=== PATIENT | female | born 1940 | race Caucasian/White ===

== ENCOUNTER 2016-09-22 09:00 | Emergency (ER) | payer MEDICARE, OTHER ==
[2016-09-22 09:15] VITALS: O2SAT 99
[2016-09-22] MEDS ORDERED: TORAdol 30 mg Injection IM ONE (09:19)
[2016-09-22] MEDS ORDERED: TORAdol 30 mg Injection ONE (09:23)
--- NOTE | 2016-09-22 09:26 | ERPHSYRPT ---
- History of Present Illness Time Seen by Provider: 09/22/16 09:11 Source: patient Exam Limitations: no limitations Patient Subjective Stated Complaint: TWISTED RIGHT FOOT AND ANKLE LAST NIGHT WHEN GETTING UP OFF COUCH. Triage Nursing Assessment: TO ROOM PER W/C. SKIN W/D, COLOR NORMAL, RESP EASY. 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 FOOT NORMAL COLOR AND WARM, GOOD PEDAL PULSE. ICE PACK APPLIED. Physician History: This is a 76-year-old white female she arrives with complaint of pain in her right dorsal foot since last night around 10:00. According to patient she went to get off the couch last night at 10:00. And her foot dorsiflexed. She had pain in the dorsal foot she did state she had some paresthesias of the foot. She states she has been having pain all night long she took some hydrocodone which she had left over from dentist. She denies other complaints. Past medical history includes hypothyroidism, high blood pressure, cholesterol, neuropathy. Past surgical history includes right total knee, tonsillectomy adenoidectomy, cataract surgery, right foot surgery. Social history patient denies tobacco alcohol or illicit drug use. Method of Injury: twisted (twisted right foot last night) Occurred: yesterday (occurred last night) Lower Extremities Pain: foot: right Modifying Factors: Improves With: nothing Associated Symptoms: unable to bear weight, other (pain dorsal right foot) Allergies/Adverse Reactions: prochlorperazine [From Compazine] Adverse Reaction (Verified 12/14/15 06:20) Home Medications: Cholecalciferol (Vitamin D3) [Vitamin D] 1,000 unit PO DAILY 12/13/15 [ History] Gabapentin 300 mg PO TID 12/13/15 [History] Glimepiride 2 mg [Amaryl 2 MG] 2 mg PO BID 12/13/15 [History] Hydrochlorothiazide 25 mg [hydroDIURIL 25 MG] 25 mg PO QAM 12/13/15 [ History] Levothyroxine Sodium 0.05 mg PO DAILY 12/13/15 [History] Linagliptin [Tradjenta] 5 mg PO QAM 12/13/15 [History] Metformin HCl 500 mg [Glucophage 500 MG] 1,000 mg PO BID 12/13/15 [History ] Moexipril HCl 15 mg [Univasc 15 MG] 15 mg PO BID 12/13/15 [History] Omeprazole [Prilosec] 40 mg PO DAILY 12/13/15 [History] Simvastatin 20 mg PO DAILY 12/14/15 [History] Hydrocodone Bit/Acetaminophen [Bradshaw 5/325Mg] 1 each PO Q4-6HPRN PRN 09/22/16 [ History] Hx Tetanus, Diphtheria Vaccination/Date Given: No Hx Influenza Vaccination/Date Given: No Hx Pneumococcal Vaccination/Date Given: Yes - Review of Systems Constitutional: No Fever, No Chills Eyes: No Symptoms Ears, Nose, & Throat: No Symptoms Respiratory: No Cough, No Dyspnea Cardiac: No Chest Pain, No Edema, No Syncope Abdominal/Gastrointestinal: No Abdominal Pain, No Nausea, No Vomiting, No Diarrhea Genitourinary Symptoms: No Dysuria Musculoskeletal: Injury (twisted right foot, right foot pain) Skin: No Rash Neurological: Other (patient states she had paresthesia r foot when she stepped down last pm) Psychological: No Symptoms Endocrine: No Symptoms All Other Systems: Reviewed and Negative - Past Medical History Pertinent Past Medical History: Yes Neurological History: Peripheral Neuropathy ENT History: Cataracts Cardiac History: High Cholesterol, Hypertension Respiratory History: No Pertinent History Endocrine Medical History: Diabetes Type II, Hypothyroidism Musculoskeletal History: No Pertinent History GI Medical History: GERD History: No Pertinent History Psycho-Social History: No Pertinent History Female Reproductive Disorders: No Pertinent History - Past Surgical History Past Surgical History: Yes Neuro Surgical History: No Pertinent History Cardiac: No Pertinent History Respiratory: No Pertinent History Gastrointestinal: No Pertinent History Genitourinary: No Pertinent History Musculoskeletal: Other Female Surgical History: No Pertinent History Other Surgical History: R eye, R total Knee, tonsillectomy, R eye cataract removal, R foot surgery - Social History Smoking Status: Former smoker How long have you smoked: [id number] Exposure to second hand smoke: No Drug Use: none Patient Lives Alone: No - Nursing Vital Signs Nursing Vital Signs: Initial Vital Signs Temperature 97.6 F Temperature Source Oral Pulse Rate 97 Respiratory Rate 18 Blood Pressure [] 170/65 Pain Intensity 7 - Physical Exam General Appearance: alert Eyes, Ears, Nose, Throat Exam: moist mucous membranes Neck Exam: non-tender, supple Cardiovascular/Respiratory Exam: chest non-tender, normal breath sounds, regular rate/rhythm, no respiratory distress Gastrointestinal/Abdominal Exam: non-tender, guarding Back Exam: normal inspection, No vertebral tenderness Hips Exam: bilateral: non-tender, normal inspection, normal range of motion, no evidence of injury Legs Exam: bilateral leg: non-tender, normal inspection, normal range of motion , no evidence of injury Knees Exam: bilateral knee: non-tender, normal inspection, normal range of motion, no evidence of injury Ankle Exam: bilateral ankle: non-tender, normal inspection, normal range of motion, no evidence of injury Foot Exam: right foot: bone tenderness (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), limited range of motion (decreased range of motion right foot secondary to pain), left foot: non-tender, normal inspection, normal range of motion DTR - Lower Extremities Exam: ankle (R): 2+, ankle (L): 2+ Neuro/Tendon Exam: normal sensation, normal motor functions Mental Status Exam: alert, oriented x 3, cooperative Skin Exam: normal color, warm, dry SpO2 Interpretation: normal (99%) SpO2: 99 Oxygen Delivery: Room Air - Course Nursing assessment & vital signs reviewed: Yes - Radiology Exams Right Foot X-ray Interpretation: Discussed w/ radiologist, Other (x-ray right foot: Tiny posterior heel spur, old fifth metatarsal fracture, talonavicular accessory ossicles, and previous distal first metatarsal surgery with intact single fixation screw. No other bony, articular, or soft tissue abnormalities.) Ordered Tests: Active Orders 24 hr Category Date Time Status Kevin Bandage Application -[facility] STAT Care 09/22/16 09:52 Active Crutches STAT Care 09/22/16 09:52 Active Splint STAT Care 09/22/16 09:52 Active FOOT (MINIMUM 3 VIEWS) Stat Exams 09/22/16 09:18 Completed Medication Summary Discontinued Medications Generic Name Dose Route Start Last Admin Trade Name Freq PRN Reason Stop Dose Admin Ketorolac Tromethamine 60 mg 09/22/16 09:19 09/22/16 09:36 Toradol 30 Mg Injection IM 09/22/16 09:20 60 mg STAT ONE Administration Ketorolac Tromethamine Confirm 09/22/16 09:23 Toradol 30 Mg Injection Administered 09/22/16 09:24 Dose 60 mg .ROUTE .STK-MED ONE - Progress Progress: improved Progress Note: 09/22/16 09:24 This is a 76-year-old white female she arrives with complaint of pain in the right dorsal foot since last night she states that she went to get off the couch she had paresthesias to her right foot she felt like her right foot and twisted backwards she felt pain in her right foot she states that she's been having pain all night long now she states that she has been taking hydrocodone last night without relief. Patient has had a history of ORIF of the right foot she does have a sensation to the right foot good capillary refill to her toes dorsal pedal posterior tibial pulses are intact 2 over 4 sensation is intact to the right toes. She is tender with palpation to the right dorsal foot. She does not have tenderness with palpation of the ankle however she has decreased range of motion in the right ankle secondary pain and foot. There is no tenderness with palpation over the medial or lateral malleolus. Will go ahead and get an x-ray of the right foot. Patient is anticipating being able to go home she is asking to be given medications will will not overly sedated her prior to going home. Will give her Toradol 60 mg IM. 09/22/16 09:53 X-ray right foot, and tiny posterior heel spur, old fifth metatarsal fracture, talonavicular assessed 3 ossicles, and previous distal first metatarsal surgery with intact single fixation screw there are no other bony articular or soft tissue abnormalities. Patient is feeling better after Toradol injection. Will have nurse place Kevin wrap and postop shoe. Will place patient on crutches. Home with Bradshaw for pain. - Departure Time of Disposition: 09:55 Departure Disposition: Home Clinical Impression: Right foot pain Right foot sprain Qualifiers: Encounter type: initial encounter Qualified Code(s): S93.601A - Unspecified sprain of right foot, initial encounter Condition: Good Critical Care Time: No Additional Instructions: Return home. Ice and elevate right foot 24-48 hours. Bradshaw 5/325 #15 one orally every 4-6 hours as needed for pain. Crutches with weightbearing as tolerated. Follow-up with your family SundaySeptember 25 at 1:30 pm. sooner if problems. Return for acute distress or for severe symptoms. Prescriptions: Hydrocodone Bit/Acetaminophen [Bradshaw 5/325Mg] 1 tab PO Q4-6HPRN PRN #15 tablet PRN Reason: Pain
--- NOTE | 2016-09-22 09:46 | XRAY ---
Indication: Pain following twisting injury. Comparison: None 3 nonweightbearing views of the right foot demonstrates tiny posterior heel spur, old fifth metatarsal fracture, talonavicular accessory ossicles, and previous distal first metatarsal surgery with intact single fixation screw. No other bony, articular, or soft tissue abnormalities.
[2016-09-22 10:01] VITALS: BP 145/66; PULSE 85
== END 2016-09-22 10:30 | disposition home or self-care (01) ==
LOC: ED 09:00
DX: S93.601A Unspecified sprain of right foot, initial encounter (principal); X50.0XXA Overexertion from strenuous movement or load, initial encounter
CPT/HCPCS: 73630; 96372; 99284; J1885

== ENCOUNTER 2019-04-01 05:43 | Day surgery (SDC) | payer MEDICARE, OTHER ==
[2019-04-01] MEDS ORDERED: Lactated Ringers 1,000 ML IV SCH (06:30)
[2019-04-01 06:31] VITALS: O2SAT 97
[2019-04-01] MEDS ORDERED: DIPRIVAN 200 MG/20 ML IV ONE (07:32)
[2019-04-01 08:43] VITALS: BP 161/79; PULSE 87
--- NOTE | 2019-04-01 10:42 | OP ---
SURGERY DATE: 04/01/19 SURGERY TIME: 729 PREOPERATIVE DIAGNOSIS: 1. HISTORY OF COLON POLYPS. POSTOPERATIVE DIAGNOSIS: 1. POLYP IN THE CECUM AND TRANSVERSE COLON. 2. MILD SIGMOID DIVERTICULOSIS. PROCEDURE: 1. Colonoscopy with cold forceps biopsy. SURGEON: Dr. Rod. ANESTHESIA: MAC. Medications given by the Anesthesia Department. BRIEF HISTORY: The patient is a 78 y/o WF presenting now for reinvestigation. She had had colonoscopy 3 years ago where 3 polyps were found. The patient was felt to need to have endoscopic evaluation for surveillance. She was appraised of the risks of the procedure including the risk of perforation, phlebitis, untoward reaction to medication, bleeding, and missed lesions. The patient verbalized her understanding and desired to have the procedure performed. DESCRIPTION OF PROCEDURE: The patient was given the medications by the Anesthesia Department. She had continuous pulse oximetry, ECG monitoring, intermittent BP monitoring, and end tidal CO2 monitoring during the examination. She was placed in the left lateral decubitus position. A digital rectal examination was performed and revealed normal anal sphincter tone, no masses. Hemorrhoids were present. The flexible Olympus pediatric colonoscope was used to intubate the rectum. A view of the colon was developed sequentially to the cecum where we found a small polyp measuring approximately 0.7 cm in size. This was destroyed using passes of the cold forceps. There was also noted sessile polyp in the transverse colon. This was biopsied using cold biopsy technique to determine if there was any adenomatous change. There was also noted scattered sigmoid diverticula in the colon. Otherwise, no other mucosal lesions were encountered. The scope was removed from the patient who tolerated the procedure well and was sent back to OP recovery in good condition. The prep was noted to be fair to good.
== END 2019-04-01 08:55 | disposition home or self-care (01) ==
LOC: SDC 05:43
PROVIDERS: ATTEND Family Medicine
DX: Z09 Encounter for follow-up examination after completed treatment for conditions other than malignant neoplasm (principal); D12.0 Benign neoplasm of cecum; D12.3 Benign neoplasm of transverse colon; K64.9 Unspecified hemorrhoids; K57.30 Diverticulosis of large intestine without perforation or abscess without bleeding; Z86.010 Personal history of colon polyps
CPT/HCPCS: 88305; 99100; J2704

== ENCOUNTER 2021-09-27 06:27 | Day surgery (SDC) | payer MEDICARE, OTHER ==
[2021-09-27] MEDS ORDERED: Lactated Ringers 1,000 ML IV ONE (06:41)
[2021-09-27] MEDS ORDERED: Lactated Ringers 1,000 ML IV SCH (07:30)
[2021-09-27] MEDS ORDERED: Xylocaine-Mpf 2% 5 Ml Vial ONE (08:00)
[2021-09-27] MEDS ORDERED: DIPRIVAN 200 MG/20 ML IV ONE (08:00)
[2021-09-27 09:01] VITALS: O2SAT 97
[2021-09-27 09:14] VITALS: BP 170/86; PULSE 78
--- NOTE | 2021-09-27 11:11 | OP ---
SURGERY DATE/TIME: 09/27/2021 0802 PREOPERATIVE DIAGNOSIS: History of colon polyps. POSTOPERATIVE DIAGNOSIS: Mild sigmoid diverticulosis otherwise normal colon. PROCEDURE: Colonoscopy. SURGEON: Dr. Rod. ANESTHESIA: MAC. Medications given by anesthesia department. HISTORY: The patient is a 81-year-old white female who presents now for screening colonoscopy. She reports she had colon polyps removed on the last two colonoscopies, 3 on one and 2 on the other. The patient is felt the need to have endoscopic evaluation. She was appraised of the risks of the procedure including the risk of perforation, phlebitis, untoward reaction to medication, bleeding and missed lesions. The patient verbalized her understanding and desired to have the procedure performed. DESCRIPTION OF PROCEDURE: The patient was given the medications by the anesthesia department. She had continuous pulse oximetry, ECG monitoring, intermittent blood pressure monitoring during the examination. She was placed in the left lateral decubitus position. A digital rectal examination was performed and revealed external hemorrhoids, normal anal sphincter tone and no masses. The flexible Olympus pediatric colonoscope was used to intubate the rectum. A view of the colon was developed sequentially to the cecum. Upon insertion and withdrawal, including a retroflex view in the rectum was noted a few mild sigmoid diverticula otherwise no other mucosal lesions were encountered. The scope was removed from the patient who tolerated the procedure well and was sent back to OP recovery in good condition. The prep was noted to be good.
== END 2021-09-27 09:10 | disposition home or self-care (01) ==
LOC: SDC 06:27
PROVIDERS: ATTEND Family Medicine
DX: K57.30 Diverticulosis of large intestine without perforation or abscess without bleeding (principal); Z09 Encounter for follow-up examination after completed treatment for conditions other than malignant neoplasm; Z86.010 Personal history of colon polyps; E11.9 Type 2 diabetes mellitus without complications
CPT/HCPCS: 82947; 99100; J2704

== ENCOUNTER 2024-02-03 23:22 | Emergency (ER) | payer MEDICARE, OTHER ==
--- NOTE | 2024-02-03 23:24 | ERPHSYRPT ---
- History of Present Illness Time Seen by Provider: 02/03/24 23:24 Historian: patient, family Exam Limitations: no limitations Physician History: This is an overweight 83-year-old white female patient who was brought in by private vehicle with a complaint of severe nausea and multiple episodes of vomiting (greater than 10) and 2 episodes of diarrhea prior to arrival. Patient history was primarily provided by the patient's spouse secondary to the patient having severe nausea and some abdominal pain. He provided independent additional history. Patient states that he and his (the patient) 8 dessert at [employer]. She had a peanut Buster Parfait. Within an hour and a half she began having nausea, multiple episodes of vomiting and 2 episodes of diarrhea. She denies chest pain. She denies shortness of breath. She denies headache. Patient has a history of hyperlipidemia, gastroesophageal reflux disease, diabetes and hypothyroidism. Timing/Duration: today Activities at Onset: none Quality: aching Abdominal Pain Onset Location: generalized abdomen Pain Radiation: no radiation Severity of Pain-Max: mild (Moderate) Severity of Pain-Current: mild (To moderate) Modifying Factors: Improves With: vomiting Associated Symptoms: diarrhea, loss of appetite, nausea, vomiting, weakness Previous symptoms: no prior history, no recent treatment Allergies/Adverse Reactions: prochlorperazine [From Compazine] Adverse Reaction (Verified 02/03/24 23:33) restless leg Home Medications: Gabapentin 300 mg PO BID 12/13/15 [History] Levothyroxine Sodium 0.05 mg PO DAILY 12/13/15 [History] Metformin HCl 500 mg [Glucophage 500 MG] 1,000 mg PO BID 12/13/15 [History] Omeprazole [Prilosec] 40 mg PO DAILY 12/13/15 [History] Simvastatin 40 mg PO DAILY 12/14/15 [History] Alendronate Sodium [Fosamax] 70 mg PO WEEKLY 02/03/24 [History] Insulin Aspart (Niacinamide) [Fiasp 100 Unit/ml Flextouch] 100 units SQ UD 02/03/24 [History] Hx Tetanus, Diphtheria Vaccination/Date Given: No Hx Influenza Vaccination/Date Given: No Hx Pneumococcal Vaccination/Date Given: Yes Travel Risk - International Travel Have you traveled outside of the country in past 3 weeks: No - Emerging Infectious Disease Are you exhibiting symptoms associated with any current EIDs: Yes Symptoms: Abdominal Pain, Diarrhea, Vomitting - Review of Systems Constitutional: Weakness Eyes: No Symptoms Ears, Nose, & Throat: No Symptoms Respiratory: No Symptoms Cardiac: No Symptoms Abdominal/Gastrointestinal: Abdominal Pain, Nausea, Vomiting, Diarrhea, Appetite Changes Genitourinary Symptoms: No Symptoms Musculoskeletal: No Symptoms Skin: No Symptoms Neurological: No Symptoms Psychological: No Symptoms Endocrine: No Symptoms Hematologic/Lymphatic: No Symptoms Immunological/Allergic: No Symptoms All Other Systems: Reviewed and Negative - Past Medical History Pertinent Past Medical History: Yes Neurological History: Peripheral Neuropathy ENT History: Cataracts Cardiac History: Hypertension Respiratory History: No Pertinent History Endocrine Medical History: Diabetes Type II Musculoskeletal History: No Pertinent History, Osteoarthritis GI Medical History: GERD History: No Pertinent History Psycho-Social History: No Pertinent History Female Reproductive Disorders: No Pertinent History Other Medical History: skin cancer on nose, anemia - Past Surgical History Past Surgical History: Yes Neuro Surgical History: No Pertinent History Cardiac: No Pertinent History Respiratory: No Pertinent History Gastrointestinal: No Pertinent History Genitourinary: No Pertinent History Musculoskeletal: Other Female Surgical History: No Pertinent History Other Surgical History: R eye, R and L total Knee, tonsillectomy, R eye cataract removal, R foot surgery - Social History Smoking Status: Former smoker How long have you smoked: [id number] Exposure to second hand smoke: No Drug Use: none Patient Lives Alone: No - Nursing Vital Signs Nursing Vital Signs: Initial Vital Signs Temperature 97.3 F 02/03/24 23:35 Pulse Rate 102 H 02/03/24 23:35 Respiratory Rate 16 02/03/24 23:35 Blood Pressure 209/81 02/03/24 23:35 O2 Sat by Pulse Oximetry 96 02/03/24 23:35 Pain Scale Pain Intensity 2 - Physical Exam General Appearance: mild distress, alert, anxiety, obese Eye Exam: PERRL/EOMI, eyes nml inspection Ears, Nose, Throat Exam: normal ENT inspection, moist mucous membranes Neck Exam: normal inspection, non-tender, supple, full range of motion Respiratory Exam: normal breath sounds, lungs clear, airway intact, No chest tenderness, No respiratory distress Cardiovascular Exam: regular rate/rhythm, normal heart sounds, normal peripheral pulses Gastrointestinal/Abdomen Exam: soft, normal bowel sounds, tenderness (Mild diffuse), No rebound Pelvic Exam: not done Rectal Exam: not done Back Exam: normal inspection, normal range of motion, No CVA tenderness, No vertebral tenderness Extremity Exam: normal inspection, normal range of motion, pelvis stable Neurologic Exam: alert, oriented x 3, cooperative, kiln pusher II-XII nml as tested, nml cerebellar function, nml station & gait, sensation nml Skin Exam: normal color, warm, dry Lymphatic Exam: No adenopathy SpO2 Interpretation: normal O2 Delivery: Room Air - Course Nursing assessment & vital signs reviewed: Yes Ordered Tests: Active Orders 24 hr Category Date Time Status IV Insertion STAT Care 02/03/24 23:46 Active ABDOMEN AND PELVIS W/0 CONTRAS [CT] Stat Exams 02/03/24 23:46 Completed AMYLASE Stat Lab 02/03/24 23:50 Completed CBC W DIFF Stat Lab 02/03/24 23:50 Completed CMP Stat Lab 02/03/24 23:50 Completed CULTURE,URINE Stat Lab 02/03/24 01:15 Received LIPASE Stat Lab 02/03/24 23:50 Completed MONO SCREEN Stat Lab 02/04/24 Completed UA W/RFX UR CULTURE Stat Lab 02/03/24 01:15 Completed Medication Summary Generic Name Dose Route Start Last Admin Trade Name Freq PRN Reason Stop Dose Admin Sodium Chloride 500 mls @ 500 mls/hr 02/04/24 01:09 02/04/24 01:10 Sodium Chloride 0.9% 500 Ml IV 02/04/24 02:08 500 mls/hr .Q1H ONE Administration Morphine Sulfate 2 mg 02/04/24 02:02 Morphine Sulfate 2 Mg/Ml Inj IV 02/04/24 02:03 STAT ONE Ondansetron HCl 4 mg 02/04/24 02:02 Ondansetron Hcl 4 Mg/2 Ml Vial IV 02/04/24 02:03 STAT ONE Discontinued Medications Generic Name Dose Route Start Last Admin Trade Name Freq PRN Reason Stop Dose Admin Sodium Chloride 1,000 mls @ 999 mls/hr 02/03/24 23:46 02/04/24 01:00 Sodium Chloride 0.9% 1000 Ml IV 02/04/24 00:46 Infused .Q1H1M STA Infusion Sodium Chloride Confirm 02/03/24 23:52 Sodium Chloride 0.9% 1000 Ml Administered 02/03/24 23:53 Dose 1,000 mls @ ud .ROUTE .STK-MED ONE Sodium Chloride 1,000 mls @ 500 mls/hr 02/04/24 01:00 02/04/24 01:10 Sodium Chloride 0.9% 1000 Ml IV 03/05/24 00:59 Not Given .Q2H MAITE Sodium Chloride Confirm 02/04/24 01:02 Sodium Chloride 0.9% 500 Ml Administered 02/04/24 01:03 Dose 500 mls @ ud IV .STK-MED ONE Ceftriaxone Sodium 1 gm in 100 mls @ 200 mls/hr 02/04/24 01:30 02/04/24 01:47 Rocephin 1 Gm / 100 Ml Nacl IV 02/04/24 01:59 200 mls/hr STAT ONE 200 mls/hr Administration Ceftriaxone Sodium Confirm 02/04/24 01:44 Rocephin 1 Gm / 100 Ml Nacl Administered 02/04/24 01:45 Dose 1 gm in 100 mls @ ud IV .STK-MED ONE Ondansetron HCl 4 mg 02/03/24 23:46 02/03/24 23:57 Ondansetron Hcl 4 Mg/2 Ml Vial IV 02/03/24 23:47 4 mg STAT ONE Administration Ondansetron HCl Confirm 02/03/24 23:51 Ondansetron Hcl 4 Mg/2 Ml Vial Administered 02/03/24 23:52 Dose 4 mg .ROUTE .STK-MED ONE Pantoprazole Sodium 40 mg 02/03/24 23:46 02/03/24 23:57 Pantoprazole 40 Mg Vial IV 02/03/24 23:47 40 mg STAT ONE Administration Pantoprazole Sodium Confirm 02/03/24 23:51 Pantoprazole 40 Mg Vial Administered 02/03/24 23:52 Dose 40 mg IV .STK-MED ONE Lab/Rad Data: Laboratory Result Diagrams 02/03/24 23:50 02/03/24 23:50 Laboratory Results 02/04/24 02/04/24 02/03/24 Range/Units Unknown 00:30 23:50 WBC (3.98-10.04) x10^3/uL RBC (3.93-5.22) x10^6/uL Hgb (11.2-15.7) g/dL Hct (34.1-44.9) % MCV (79.4-94.8) fL MCH (25.6-32.2) pg MCHC (32.2-35.5) g/dL RDW (11.7-14.4) % Plt Count (182-369) x10^3/uL MPV (9.4-12.3) fL Gran % (34.0-71.1) % Immature Gran % (Auto) (0.001-0.429) % Nucleat RBC Rel Count (0.00-0.2) % Eos # (Auto) (0.04-0.36) x10^3/uL Immature Gran # (Auto) (0.001-0.031) x10^3u/L Absolute Lymphs (auto) (1.18-3.74) x10^3/uL Absolute Monos (auto) (0.24-0.86) x10^3/uL Absolute Nucleated RBC (0.00-0.012) x10^3u/L Lymphocytes % (19.3-51.7) % Monocytes % (4.7-12.5) % Eosinophils % (0.7-5.8) % Basophils % (0.1-1.2) % Absolute Granulocytes (1.56-6.13) x10^3/uL Basophils # (0.01-0.08) x10^3/uL Sodium 141 (135-145) mmol/L Potassium 4.6 (3.5-5.1) mmol/L Chloride 106 (98-107) mmol/L Carbon Dioxide 23 (22-30) mmol/L Anion Gap 16.3 H (5-15) MEQ/L BUN 29 H (7-17) mg/dL Creatinine 1.37 H (0.52-1.04) mg/dL Estimated GFR 38.8 ML/MIN Glucose 201 H (74-106) mg/dL Calcium 9.9 (8.4-10.2) mg/dL Total Bilirubin 0.50 (0.2-1.3) mg/dL AST 26 (14-36) U/L ALT 18 (0-35) U/L Alkaline Phosphatase 70 (38-126) U/L Serum Total Protein 8.2 (6.3-8.2) g/dL Albumin 4.8 (3.5-5.0) g/dL Amylase 88 (30-110) U/L Lipase 163 (23-300) U/L Urine Color (Yellow) Urine Appearance (Clear) Urine pH (4.6-8.0) Ur Specific [place] (1.005-1.030) Urine Protein (Negative) Urine Glucose (UA) (Negative) mg/dL Urine Ketones (Negative) Urine Blood (Negative) Urine Nitrite (Negative) Urine Bilirubin (Negative) Urine Urobilinogen (0.2) mg/dL Ur Leukocyte Esterase (Negative) U Hyaline Cast (Auto) (0-2) /LPF Urine Microscopic RBC (0-5) /HPF Urine Microscopic WBC (0-5) /HPF Ur Epithelial Cells (None Seen) /HPF Urine Bacteria (None Seen) /HPF Urine Culture Reflexed (NO) Monoscreen POSITIVE A (NEGATIVE) Influenza Type A Ag NEGATIVE (NEGATIVE) Influenza Type B Ag NEGATIVE (NEGATIVE) RSV (PCR) NEGATIVE (NEGATIVE) SARS-CoV-2 (PCR) NEGATIVE (NEGATIVE) Slides for Path Review 02/03/24 02/03/24 Range/Units 23:50 01:15 WBC 20.6 H (3.98-10.04) x10^3/uL RBC 4.22 (3.93-5.22) x10^6/uL Hgb 9.9 L (11.2-15.7) g/dL Hct 34.2 (34.1-44.9) % MCV 81.0 (79.4-94.8) fL MCH 23.5 L (25.6-32.2) pg MCHC 28.9 L (32.2-35.5) g/dL RDW 18.0 H (11.7-14.4) % Plt Count 312 (182-369) x10^3/uL MPV 9.7 (9.4-12.3) fL Gran % 81.7 H (34.0-71.1) % Immature Gran % (Auto) 0.5 H (0.001-0.429) % Nucleat RBC Rel Count 0.0 (0.00-0.2) % Eos # (Auto) 0.47 H (0.04-0.36) x10^3/uL Immature Gran # (Auto) 0.11 H (0.001-0.031) x10^3u/L Absolute Lymphs (auto) 1.90 (1.18-3.74) x10^3/uL Absolute Monos (auto) 1.19 H (0.24-0.86) x10^3/uL Absolute Nucleated RBC 0.00 (0.00-0.012) x10^3u/L Lymphocytes % 9.2 L (19.3-51.7) % Monocytes % 5.8 (4.7-12.5) % Eosinophils % 2.3 (0.7-5.8) % Basophils % 0.5 (0.1-1.2) % Absolute Granulocytes 16.78 H (1.56-6.13) x10^3/uL Basophils # 0.11 H (0.01-0.08) x10^3/uL Sodium (135-145) mmol/L Potassium (3.5-5.1) mmol/L Chloride (98-107) mmol/L Carbon Dioxide (22-30) mmol/L Anion Gap (5-15) MEQ/L BUN (7-17) mg/dL Creatinine (0.52-1.04) mg/dL Estimated GFR ML/MIN Glucose (74-106) mg/dL Calcium (8.4-10.2) mg/dL Total Bilirubin (0.2-1.3) mg/dL AST (14-36) U/L ALT (0-35) U/L Alkaline Phosphatase (38-126) U/L Serum Total Protein (6.3-8.2) g/dL Albumin (3.5-5.0) g/dL Amylase (30-110) U/L Lipase (23-300) U/L Urine Color Yellow (Yellow) Urine Appearance Clear (Clear) Urine pH 5.0 (4.6-8.0) Ur Specific [place] 1.015 (1.005-1.030) Urine Protein 30 (Negative) Urine Glucose (UA) Negative (Negative) mg/dL Urine Ketones Trace A (Negative) Urine Blood Negative (Negative) Urine Nitrite Negative (Negative) Urine Bilirubin Negative (Negative) Urine Urobilinogen 0.2 (0.2) mg/dL Ur Leukocyte Esterase Small A (Negative) U Hyaline Cast (Auto) NONE SEEN (0-2) /LPF Urine Microscopic RBC 0-2 (0-5) /HPF Urine Microscopic WBC 6-10 A (0-5) /HPF Ur Epithelial Cells None Seen (None Seen) /HPF Urine Bacteria None Seen (None Seen) /HPF Urine Culture Reflexed YES (NO) Monoscreen (NEGATIVE) Influenza Type A Ag (NEGATIVE) Influenza Type B Ag (NEGATIVE) RSV (PCR) (NEGATIVE) SARS-CoV-2 (PCR) (NEGATIVE) Slides for Path Review YES - Progress Progress: improved, re-examined Progress Note: 02/04/24 00:21 My medical decision making and the assignment of moderate complexity to this patient's medical issue today is based on review of the patient's past medical history, review of patient's medication list, review of patient drug allergy list, history present illness and physical findings on examination. The workup in this patient includes placement of intravenous line, infusion of normal saline solution, infusion of Zofran, infusion of Protonix, CBC, CMP, amylase, lipase, urinalysis, viral swabs, monotest and CT scan of the abdomen pelvis. Differential diagnosis includes but is not limited to pancreatitis, urinary tract infection, electrolyte abnormalities, food poisoning, gastritis, gastric ulcer 02/04/24 02:03 I interpreted the patient's laboratory data results. Patient has a urinary tract infection. She also test positive for mononucleosis. CT scan of the abdomen and pelvis without contrast was interpreted by the radiologist and I reviewed the impression. The impression states displaced gastroesophageal junction above the esophageal hiatus with mild thickening of the GE junction wall. Patient has advanced degenerative changes in the lumbar spine (lumbar spondylosis. Counseled pt/family regarding: lab results, diagnosis, need for follow-up, rad results Medical Desision Making - Independent Historian Additional History obtained from: Spouse - Diagnostic Testing Diagnostic test were ordered, analyzed, and reviewed by me: Yes Radiological Interpretation: Reviewed by me, Teleradiologist Report - Risk of complications The pt has a mod risk of morbidity or mortality based on: Need for prescription drug management - Departure Departure Disposition: Home Clinical Impression: Mononucleosis, UTI (urinary tract infection), Lumbar spondylosis Condition: Stable Critical Care Time: No Referrals: IVAN JESSICA [Primary Care Provider] - Follow up/PCP as directed Additional Instructions: Drink plenty of clear liquids before advancing your diet. Avoid fatty greasy spicy foods. Take your medication as prescribed. Call your primary care physician today, 02/04/2024, to make arrangements for further evaluation and management and to be seen in the next 3 to 5 days. Discussed with your primary care provider the degenerative lumbar spine findings on the CAT scan as well as the findings of the mild thickening of the gastroesophageal junction wall and any further management of these entities. Prescriptions: Ondansetron ODT 4 MG [Zofran Odt 4 mg] 4 mg PO Q6H PRN PRN #10 tablet PRN Reason: Vomiting Cefdinir 300 mg PO BID #14 cap
[2024-02-03 23:43] VITALS: TEMP 97.3
[2024-02-03] MEDS ORDERED: PROTONIX 40 MG IV IV ONE (23:51)
[2024-02-03] MEDS ORDERED: Zofran 4 MG/2 ML VIAL ONE (23:51)
[2024-02-03] MEDS ORDERED: Sodium Chloride 0.9% 1000 ML 1,000 ML ONE (23:52)
[2024-02-03 23:54] LABS: Absolute Neutrophil Ct (ANC) 16.78 x10^3/uL (1.56-6.13); BASOPHIL % 0.5 % (0.1-1.2); Basophil (Absolute #) 0.11 x10^3/uL (0.01-0.08); Eosinophil % 2.3 % (0.7-5.8); Eosinophil (Absolute #) 0.47 x10^3/uL (0.04-0.36); Hematocrit 34.2 % (34.1-44.9); Hemoglobin 9.9 g/dL (11.2-15.7); IMMATURE GRAN # 0.11 x10^3u/L (0.001-0.031); IMMATURE GRAN % 0.5 % (0.001-0.429); Lymphocytes % 9.2 % (19.3-51.7); Mean Corpuscular Hemoglobin 23.5 pg (25.6-32.2); Mean Corpuscular Hgb Concent. 28.9 g/dL (32.2-35.5); Mean Platelet Volume 9.7 fL (9.4-12.3); Monocyte (Absolute #) 1.19 x10^3/uL (0.24-0.86); Monocytes % 5.8 % (4.7-12.5); Neutrophil % 81.7 % (34.0-71.1); Platelet Count 312 x10^3/uL (182-369); Red Blood Count 4.22 x10^6/uL (3.93-5.22); White Blood Count 20.6 x10^3/uL (3.98-10.04)
[2024-02-03] MEDS: Sodium Chloride 0.9% 1000 ML 1,000 ML IV STA (23:56)
[2024-02-03] MEDS: PROTONIX 40 MG IV IV ONE (23:57)
[2024-02-03] MEDS: Zofran 4 MG/2 ML VIAL IV ONE (23:57)
[2024-02-04 00:06] LABS: ALBUMIN 4.8 g/dL (3.5-5.0); ANION GAP 16.3 MEQ/L (5-15); BILIRUBIN,TOTAL 0.5 mg/dL (0.2-1.3); Calcium 9.9 mg/dL (8.4-10.2); Creatinine 1 1.37 mg/dL (0.52-1.04); EST GLOMERULAR FILTRATION RATE 38.8 ML/MIN; Potassium 4.6 mmol/L (3.5-5.1); Total Protein 8.2 g/dL (6.3-8.2)
[2024-02-04] MEDS ORDERED: Sodium Chloride 0.9% 500 ML 500 ML IV ONE (01:02)
[2024-02-04 01:06] LABS: INFLUENZA A NEGATIVE (NEGATIVE); INFLUENZA B NEGATIVE (NEGATIVE); RESPIRATORY SYNCTIAL VIRUS NEGATIVE (NEGATIVE); SARS-CoV-2 Xpert Express NEGATIVE (NEGATIVE)
[2024-02-04] MEDS: Sodium Chloride 0.9% 1000 ML 1,000 ML IV SCH (01:10)
[2024-02-04] MEDS: Sodium Chloride 0.9% 500 ML 500 ML IV ONE (01:10)
[2024-02-04 01:23] LABS: Appearance Clear (Clear); Bacteria None Seen /HPF (None Seen); Bilirubin Negative (Negative); Blood Negative (Negative); Epithelial Cells None Seen /HPF (None Seen); Glucose, Urine Negative (Negative); Hyaline Casts NONE SEEN /LPF (0-2); Ketones Trace (Negative); Leukocyte Esterase Small (Negative); Nitrite Negative (Negative); Protein,Urine Dip 30 (Negative); RBC 0-2 /HPF (0-5); Specific Gravity 1.015 (1.005-1.030); Urobilinogen 0.2 mg/dL (0.2)
[2024-02-04 01:27] LABS: ADD URINE CULTURE? YES (NO)
[2024-02-04] MEDS ORDERED: ROCEPHIN 1 GM / 100 ML NaCl 1 GM/100 ML IVPB IV ONE (01:44)
[2024-02-04] MEDS: ROCEPHIN 1 GM / 100 ML NaCl 1 GM/100 ML IVPB IV ONE (01:47)
[2024-02-04 01:51] LABS: Slide Review 1 YES
--- NOTE | 2024-02-04 01:58 | XRAY ---
CLINICAL HISTORY: Vomiting COMPARISON: None. TECHNIQUE: CT scan of the abdomen and pelvis was performed in axial plane without IV contrast. Coronal and sagittal reconstructive images were also obtained. One of the following dose reduction techniques was utilized for this exam.Automated exposure control, adjustment of the mA and/or kV according to patient size, and use of iterative reconstruction. FINDINGS: Scan through the lower chest reveals a calcifying granuloma measuring 9 x 6 mm in the anteromedial segment of the left lower lobe. Few calcified left hilar lymph nodes were also seen The gastro-esophageal junction is displaced above the esophageal hiatus with mild thickening of the gastro-esophageal junction wall, measuring 21mm. Abdomen: The liver is of average size and measures 14.7 cm. Multiple specks of calcifications are noted in the right lobe, larger one 4 x 4 mm in segment VIII of the right lobe. No focal or diffuse parenchymal abnormality. The portal vein, intrahepatic biliary radicals, and the bile ducts are normal. The spleen is normal in size measuring 9.8 cm with multiple tiny specks of calcifications. The pancreas and adrenal glands are unremarkable. The kidneys are unremarkable. The left kidney shows reduced parenchymal thickening. They are normal in size and shape. No calculi or hydronephrosis. The gallbladder is distended and shows no definite stones. There is no evidence of wall thickening/ pericholecystic collection. The ascending colon, the transverse colon, the descending colon, visualized small bowel loops are unremarkable. No sign of appendicitis. There is no evidence of significant enlargement of the mesenteric or retroperitoneal lymph nodes. Pelvis: The urinary bladder is unremarkable. The rectosigmoid colon is unremarkable. Uterus is unremarkable. No adnexal masses. The pelvic vasculature is unremarkable. No evidence of pelvic lymphadenopathy. Calcifying atherosclerotic changes along the entire course of the abdominal aorta. Advanced degenerative changes are seen in the visualized spine with reduced intervertebral disc space and vacuum phenomenon at L1-L2, L2-L3, L3-L4, and L5-S1. IMPRESSION: 1. A calcifying granuloma in the anteromedial segment of the left lower lobe. Few calcified left hilar lymph nodes. 2. Displaced gastro-esophageal junction above the esophageal hiatus-Hiatus hernia, with mild thickening of the gastro-esophageal junction wall. If clinically warranted endoscopy and biopsy are suggested. 3. Multiple specks of calcifications in the liver and spleen. 4. Reduced parenchymal thickness of the left kidney could be a sequel of chronic parenchymal disease. Clinical correlation is suggested. 5. Lumbar spondylosis. Electronically Signed by: Zohreh Robison MD. (02/04/2024 01:54:45 EDT)
[2024-02-04 02:07] VITALS: BP 193/90; PULSE 104; RESP 16; O2SAT 97
[2024-02-04] MEDS ORDERED: Zofran 4 MG/2 ML VIAL ONE (02:09)
[2024-02-04] MEDS ORDERED: MORPHINE SULFATE 2 MG INJ ONE (02:09)
[2024-02-04] MEDS: MORPHINE SULFATE 2 MG INJ IV ONE (02:10)
[2024-02-04] MEDS: Zofran 4 MG/2 ML VIAL IV ONE (02:10)
[2024-02-04] MEDS ORDERED: NORCO 5/325 MG ONE (02:25)
[2024-02-04] MEDS: NORCO 5/325 MG PO ONE (02:25)
== END 2024-02-04 02:53 | disposition home or self-care (01) ==
LOC: ED 23:22
DX: B27.90 Infectious mononucleosis, unspecified without complication (principal); N39.0 Urinary tract infection, site not specified; M47.816 Spondylosis without myelopathy or radiculopathy, lumbar region; R11.2 Nausea with vomiting, unspecified; R19.7 Diarrhea, unspecified; E78.5 Hyperlipidemia, unspecified; E11.42 Type 2 diabetes mellitus with diabetic polyneuropathy; Z79.84 Long term (current) use of oral hypoglycemic drugs; Z79.4 Long term (current) use of insulin; Z79.899 Other long term (current) drug therapy
CPT/HCPCS: 0241U; 36000; 36415; 74176; 80053; 81001; 82150; 83690; 85025; 86308; 87077; 87086; 87186; 96360; 96361; 96365; 96374; 96375; 96376; 99284; J0696; J2270; J2405; A9270-GY

== ENCOUNTER 2024-02-19 05:41 | Day surgery (SDC) | payer MEDICARE, OTHER ==
[2024-02-19] MEDS ORDERED: Lactated Ringers 1,000 ML IV ONE (06:30)
[2024-02-19] MEDS: Lactated Ringers 1,000 ML IV SCH (06:39)
[2024-02-19] MEDS ORDERED: DIPRIVAN 200 MG/20 ML IV ONE (07:27)
[2024-02-19] MEDS ORDERED: Xylocaine-Mpf 2% 5 Ml Vial ONE (07:28)
[2024-02-19 08:07] VITALS: RESP 16; TEMP 97.8
[2024-02-19 08:35] VITALS: BP 167/53; PULSE 75; O2SAT 97
--- NOTE | 2024-02-20 09:16 | OP ---
SURGERY DATE/TIME: 02/19/24 3247 - 3018 PREOPERATIVE DIAGNOSIS: Abnormal MRI of the stomach, history of gastroesophageal reflux disease and anemia. POSTOPERATIVE DIAGNOSIS: Moderate gastritis and hiatal hernia. PROCEDURE: Esophagogastroduodenoscopy with cold forceps biopsy of the stomach antrum. SURGEON: Thanh Rod MD MEDICATION: Given by the anesthesia department. INDICATIONS: The patient is an 83-year-old female who ended up in the emergency room about 1 week or so ago. She had an MRI at that time which showed some possible thickening of the lining of the stomach. The patient was also noted to have anemia. She reports a history of GERD. The patient was felt to need to have endoscopic evaluation. She was apprised of the risks of the procedure including the risk of perforation, phlebitis, untoward reaction to medication, sore throat, vocal cord injury, and the patient verbalized understanding and desired to have the procedure performed. DESCRIPTION OF PROCEDURE AND FINDINGS: The patient was given medication by the anesthesia department. She had continuous pulse oximetry, ECG monitoring, and intermittent blood pressure monitoring during the examination. She was placed in the left lateral decubitus position. A bite block was placed, and a flexible Olympus gastroscope was used to intubate the oropharynx. A view of the larynx was obtained and was normal. The scope was easily introduced in the esophagus which was essentially normal to the EG junction where we did note a hiatal hernia present. The stomach was entered where gastric rugal folds were seen. These distended nicely with insufflation of air. The scope was passed along the greater curvature of the stomach to the antrum. Pylorus was encountered. There was noted to be some inflammation in the lower part of the gastric antrum. Pylorus was intubated. Duodenum was inspected and found to be essentially normal. The scope was withdrawn toward the stomach. Again, a retroflex view was obtained of the lesser curvature, fundus, and cardia regions of the stomach, and other than the aforementioned hiatal hernia, no other mucosal abnormalities were noted. Biopsies were obtained in the gastric antrum to rule out the presence of Helicobacter pylori-type organisms and to rule out any evidence of linitis plastica. The scope was removed from the patient who tolerated the procedure well and sent back to outpatient recovery in good condition.
== END 2024-02-19 08:36 | disposition home or self-care (01) ==
LOC: SDC 05:41
PROVIDERS: ATTEND Family Medicine
DX: K29.70 Gastritis, unspecified, without bleeding (principal); K44.9 Diaphragmatic hernia without obstruction or gangrene; Z87.19 Personal history of other diseases of the digestive system; D64.9 Anemia, unspecified; R93.5 Abnormal findings on diagnostic imaging of other abdominal regions, including retroperitoneum; E11.9 Type 2 diabetes mellitus without complications
CPT/HCPCS: 82947; 99100; J2704

== ENCOUNTER 2024-07-02 09:06 | Observation (INO) | payer MEDICARE, OTHER ==
[2024-07-02 10:01] LABS: Absolute Neutrophil Ct (ANC) 6.01 x10^3/uL (1.56-6.13); BASOPHIL % 0.6 % (0.1-1.2); Basophil (Absolute #) 0.05 x10^3/uL (0.01-0.08); Eosinophil % 0.9 % (0.7-5.8); Eosinophil (Absolute #) 0.07 x10^3/uL (0.04-0.36); Hematocrit 37.3 % (34.1-44.9); Hemoglobin 11.6 g/dL (11.2-15.7); IMMATURE GRAN # 0.04 x10^3u/L (0.001-0.031); IMMATURE GRAN % 0.5 % (0.001-0.429); Lymphocyte (Absolute #) 0.99 x10^3/uL (1.18-3.74); Lymphocytes % 12.8 % (19.3-51.7); Mean Cell Volume 94.9 fL (79.4-94.8); Mean Corpuscular Hemoglobin 29.5 pg (25.6-32.2); Mean Corpuscular Hgb Concent. 31.1 g/dL (32.2-35.5); Mean Platelet Volume 9.8 fL (9.4-12.3); Monocyte (Absolute #) 0.58 x10^3/uL (0.24-0.86); Monocytes % 7.5 % (4.7-12.5); Neutrophil % 77.7 % (34.0-71.1); Platelet Count 227 x10^3/uL (182-369); Red Blood Count 3.93 x10^6/uL (3.93-5.22); Red Cell Distribution Width 15.1 % (11.7-14.4); White Blood Count 7.7 x10^3/uL (3.98-10.04)
[2024-07-02 10:11] LABS: ALBUMIN 4.2 g/dL (3.5-5.0); ANION GAP 12.8 MEQ/L (5-15); BILIRUBIN,TOTAL 0.6 mg/dL (0.2-1.3); Calcium 8.9 mg/dL (8.4-10.2); Creatinine 1 1.16 mg/dL (0.52-1.04); EST GLOMERULAR FILTRATION RATE 47.4 ML/MIN; Potassium 4.2 mmol/L (3.5-5.1); Total Protein 7.4 g/dL (6.3-8.2)
--- NOTE | 2024-07-02 11:17 | ERPHSYRPT ---
- History of Present Illness Time Seen by Provider: 07/02/24 10:26 Source: patient, family Exam Limitations: no limitations Patient Subjective Stated Complaint: pt here for pain to bottom of left foot for 2 weeks now,. Triage Nursing Assessment: pt alert, walked in with a limp, pt has callus area on left great toe that, Toe is swollen red and tender around callus . Physician History: 83-year-old with history of diabetes mellitus, hypertension, hyperlipidemia had bilateral big toes callus shaved off [address] Gage Mims in [place] followed by increasing pain and swelling around and now having swelling of the whole left big toe with moderate to severe sharp pain. Patient reports because of the swelling is developing ingrown toenail which is making the pain even more worse. No fever or chills reported. Difficulty ambulation. Diabetes mellitus well-controlled. Allergies/Adverse Reactions: prochlorperazine [From Compazine] Adverse Reaction (Verified 02/19/24 06:10) restless leg Home Medications: Gabapentin 300 mg PO BID 12/13/15 [History] Levothyroxine Sodium 0.05 mg PO DAILY 12/13/15 [History] Metformin HCl 500 mg [Glucophage 500 MG] 1,000 mg PO BID 12/13/15 [History] Omeprazole [Prilosec] 40 mg PO DAILY 12/13/15 [History] Simvastatin 40 mg PO EVENING MEAL 12/14/15 [History] Alendronate Sodium [Fosamax] 70 mg PO WEEKLY 02/03/24 [History] Insulin Aspart (Niacinamide) [Fiasp 100 Unit/ml Flextouch] 100 units SQ UD 02/03/24 [History] Benazepril HCl 20 mg PO BID 02/14/24 [History] Insulin Aspart (Niacinamide) [Fiasp 100 Unit/ml Flextouch] 11 unit SQ HS 07/02/24 [History] Tirzepatide [Mounjaro] 2.5 mg SQ WEEKLY 07/02/24 [History] Hx Tetanus, Diphtheria Vaccination/Date Given: No Hx Influenza Vaccination/Date Given: Yes Hx Pneumococcal Vaccination/Date Given: Yes Immunizations Up to Date: Yes Travel Risk - International Travel Have you traveled outside of the country in past 3 weeks: No - Emerging Infectious Disease Are you exhibiting symptoms associated with any current EIDs: No Symptoms: Abdominal Pain, Diarrhea, Vomitting - Review of Systems Constitutional: No Symptoms Ears, Nose, & Throat: No Symptoms Respiratory: No Symptoms Cardiac: No Symptoms Abdominal/Gastrointestinal: No Symptoms Musculoskeletal: Injury Skin: Cellulitis, Skin Lesions Neurological: No Symptoms Psychological: No Symptoms - Past Medical History Pertinent Past Medical History: Yes Neurological History: Peripheral Neuropathy ENT History: Cataracts Cardiac History: Hypertension Respiratory History: No Pertinent History Endocrine Medical History: Diabetes Type II Musculoskeletal History: Osteoarthritis GI Medical History: GERD History: No Pertinent History Psycho-Social History: No Pertinent History Female Reproductive Disorders: No Pertinent History Other Medical History: skin cancer on nose, anemia - Past Surgical History Past Surgical History: Yes Neuro Surgical History: No Pertinent History Cardiac: No Pertinent History Respiratory: No Pertinent History Gastrointestinal: No Pertinent History Genitourinary: No Pertinent History Musculoskeletal: Other Female Surgical History: No Pertinent History Other Surgical History: R eye, bilateral total Knee, tonsillectomy, R eye cataract removal, R foot surgery - Social History Smoking Status: Former smoker How long have you smoked: [id number] Exposure to second hand smoke: No Drug Use: none Patient Lives Alone: No - Social Determinants of Health Will the patient participate in the screening: Yes Do you worry about a steady place to live?: No Do you have any problems with any of the following?: No known problems In the past 12 months,have you had to go without utilities?: No Transportation Issues: No Has anyone in your support network made you feel unsafe?: No Have you or anyone in your house had to go without enough: No - Nursing Vital Signs Nursing Vital Signs: Initial Vital Signs Temperature 97.2 F 07/02/24 09:26 Pulse Rate 93 H 07/02/24 09:26 Respiratory Rate 18 07/02/24 09:26 Blood Pressure 192/65 07/02/24 09:26 O2 Sat by Pulse Oximetry 98 07/02/24 09:26 Pain Scale Pain Intensity 10 - Physical Exam General Appearance: no apparent distress Neck Exam: normal inspection, full range of motion Cardiovascular/Respiratory Exam: normal breath sounds, regular rate/rhythm Back Exam: normal range of motion Ankle Exam: bilateral ankle: non-tender, normal inspection, normal range of motion Foot Exam: right foot: non-tender, normal inspection, normal range of motion, no evidence of injury, left foot: bone tenderness (Big toe), pain, soft tissue tenderness, swelling, other (Callus with swelling around the base of big toe, fluctuant.) Neuro/Tendon Exam: normal sensation, normal motor functions, normal tendon functions Mental Status Exam: alert, oriented x 3, cooperative Skin Exam: normal color SpO2 Interpretation: normal SpO2: 97 O2 Delivery: Room Air Ordered Tests: Active Orders 24 hr Category Date Time Status IV Insertion STAT Care 07/02/24 12:33 Completed FOOT (MINIMUM 3 VIEWS) Stat Exams 07/02/24 11:55 Completed BLOOD CULTURE Stat Lab 07/02/24 09:45 Received CBC W DIFF Stat Lab 07/02/24 09:45 Completed CMP Stat Lab 07/02/24 09:45 Completed Medication Summary Generic Name Dose Route Start Last Admin Trade Name Freq PRN Reason Stop Dose Admin Acetaminophen 650 mg 07/02/24 14:33 Acetaminophen 325 Mg Tablet PO 08/01/24 14:32 Q4H PRN PRN PAIN, FEVER, HEADACHE Benazepril HCl 20 mg 07/02/24 22:00 Benazepril Hcl 10 Mg Tablet PO 08/01/24 21:59 BID MA[facility] Device 1 07/04/24 09:30 Therapuetic Drug Level Monitor Each IJ 07/04/24 09:31 1XONLY ONE Gabapentin 300 mg 07/02/24 22:00 Gabapentin 300 Mg Capsule PO 08/01/24 21:59 BID MAITE Hydralazine HCl 5 mg 07/02/24 14:32 Hydralazine Hcl 20 Mg/Ml Vial IV 08/01/24 14:31 [id number] PRN HYPERTENSION Piperacillin Sod/Tazobactam 100 mls @ 200 mls/hr 07/02/24 18:00 Sod 2.25 gm/ Sodium Chloride IV 08/01/24 17:59 Q6HT MAITE Vancomycin HCl 1 gm in 200 mls @ 133.333 mls/hr 07/03/24 10:00 Vancomycin 1 Gram/200 Ml Bag IV 08/02/24 09:59 DAILY [facility] Insulin Human Lispro 0 unit 07/02/24 14:33 Insulin Lispro 1 Unit SQ 08/01/24 14:32 UD PRN HYPERGLYCEMIA Levothyroxine Sodium 50 mcg 07/03/24 10:00 Levothyroxine Sodium 50 Mcg Tablet PO 08/02/24 09:59 DAILY [facility] Ondansetron HCl 4 mg 07/02/24 14:33 Ondansetron Hcl 4 Mg/2 Ml Vial IV 08/01/24 14:32 Q6H PRN PRN NAUSEA/VOMITING Pantoprazole Sodium 40 mg 07/03/24 10:00 Protonix (Pantoprazole) 40 Mg Tablet PO 08/02/24 09:59 DAILY [facility] Simvastatin 40 mg 07/02/24 18:00 Simvastatin 20 Mg Tablet PO 08/01/24 17:59 EVENING MEAL [facility]ITE Discontinued Medications Generic Name Dose Route Start Last Admin Trade Name Freq PRN Reason Stop Dose Admin Piperacillin Sod/Tazobactam 100 mls @ 200 mls/hr 07/02/24 12:23 07/02/24 12:38 Sod 3.375 gm/ Sodium Chloride IV 07/02/24 12:52 200 mls/hr STAT ONE Administration Vancomycin HCl 2 gm in 400 mls @ 133.333 mls/hr 07/02/24 12:23 07/02/24 12:42 Vancomycin 2 Gram/400 Ml Bag IV 07/02/24 15:22 133.333 ml/hr STAT ONE 133.33 mls/hr Administration Sodium Chloride Confirm 07/02/24 12:35 Sodium Chloride 100ml Mini-Bag Plus Administered 07/02/24 12:36 Dose 100 mls @ ud IV .STK-MED ONE Vancomycin HCl Confirm 07/02/24 12:35 Vancomycin 2 Gram/400 Ml Bag Administered 07/02/24 12:36 Dose 2 gm in 400 mls @ ud IV .STK-MED ONE Piperacillin Sod/Tazobactam 100 mls @ 200 mls/hr 07/02/24 18:00 Sod 3.375 gm/ Sodium Chloride IV 07/05/24 17:59 Q6HT [facility] Morphine Sulfate 4 mg 07/02/24 11:02 07/02/24 11:37 Morphine Sulfate 4 Mg/Ml Injection IM 07/02/24 11:03 4 mg STAT ONE Administration Morphine Sulfate Confirm 07/02/24 11:34 Morphine Sulfate 4 Mg/Ml Injection Administered 07/02/24 11:35 Dose 4 mg .ROUTE .STK-MED ONE Morphine Sulfate 4 mg 07/02/24 12:47 07/02/24 12:48 Morphine Sulfate 4 Mg/Ml Injection IV 07/02/24 12:48 4 mg STAT ONE Administration Morphine Sulfate Confirm 07/02/24 12:47 Morphine Sulfate 4 Mg/Ml Injection Administered 07/02/24 12:48 Dose 4 mg .ROUTE .STK-MED ONE Non-Formulary Medication 1 each 07/02/24 14:37 07/02/24 15:54 Pharmacy Dose Request: Vancomycin 1 Each IV 07/02/24 14:38 Not Given STAT STA Ondansetron HCl 4 mg 07/02/24 12:43 07/02/24 12:48 Ondansetron Hcl 4 Mg/2 Ml Vial IV 07/02/24 12:44 4 mg STAT ONE Administration Ondansetron HCl Confirm 07/02/24 12:45 Ondansetron Hcl 4 Mg/2 Ml Vial Administered 07/02/24 12:46 Dose 4 mg .ROUTE .STK-MED ONE Piperacillin Sod/Tazobactam Sod Confirm 07/02/24 12:34 Piperacillin/Tazobactam Sodium 3.375 Gm Vial Administered 07/02/24 12:35 Dose 3.375 gm IV .STK-MED ONE Lab/Rad Data: Laboratory Result Diagrams 07/02/24 09:45 07/02/24 09:45 Laboratory Results 07/02/24 07/02/24 07/02/24 Range/Units 09:45 09:45 09:35 WBC 7.7 (3.98-10.04) x10^3/uL RBC 3.93 (3.93-5.22) x10^6/uL Hgb 11.6 (11.2-15.7) g/dL Hct 37.3 (34.1-44.9) % MCV 94.9 H (79.4-94.8) fL MCH 29.5 (25.6-32.2) pg MCHC 31.1 L (32.2-35.5) g/dL RDW 15.1 H (11.7-14.4) % Plt Count 227 (182-369) x10^3/uL MPV 9.8 (9.4-12.3) fL Gran % 77.7 H (34.0-71.1) % Immature Gran % (Auto) 0.5 H (0.001-0.429) % Nucleat RBC Rel Count 0.0 (0.00-0.2) % Eos # (Auto) 0.07 (0.04-0.36) x10^3/uL Immature Gran # (Auto) 0.04 H (0.001-0.031) x10^3u/L Absolute Lymphs (auto) 0.99 L (1.18-3.74) x10^3/uL Absolute Monos (auto) 0.58 (0.24-0.86) x10^3/uL Absolute Nucleated RBC 0.00 (0.00-0.012) x10^3u/L Lymphocytes % 12.8 L (19.3-51.7) % Monocytes % 7.5 (4.7-12.5) % Eosinophils % 0.9 (0.7-5.8) % Basophils % 0.6 (0.1-1.2) % Absolute Granulocytes 6.01 (1.56-6.13) x10^3/uL Basophils # 0.05 (0.01-0.08) x10^3/uL Sodium 138 (135-145) mmol/L Potassium 4.2 (3.5-5.1) mmol/L Chloride 106 (98-107) mmol/L Carbon Dioxide 23 (22-30) mmol/L Anion Gap 12.8 (5-15) MEQ/L BUN 16 (7-17) mg/dL Creatinine 1.16 H (0.52-1.04) mg/dL Estimated GFR 47.4 ML/MIN Glucose 123 H (74-106) mg/dL Hemoglobin A1c 5.86 (4.5-6.0) % Calcium 8.9 (8.4-10.2) mg/dL Total Bilirubin 0.60 (0.2-1.3) mg/dL AST 21 (14-36) U/L ALT 14 (0-35) U/L Alkaline Phosphatase 54 (38-126) U/L Serum Total Protein 7.4 (6.3-8.2) g/dL Albumin 4.2 (3.5-5.0) g/dL - Progress Progress: pain not gone completely Progress Note: 07/02/24 13:11 83-year-old with history of diabetes mellitus, hypertension is evaluated in the ER for left big toe swelling after she had a minor outpatient procedure done at podiatry office in [place]. Patient has diffuse swelling of the big toe with some abscess underneath. She is given symptomatic treatment for pain. Workup showed normal white count, chemistries fairly unremarkable. Blood cultures are obtained. I have discussed with Dr. Clark who has seen patient and did bedside I&D and recommended starting on Zosyn and vancomycin, admission to the hospitalist service for further evaluation and management. Initially patient was not willing to have x-rays, after prolonged discussion she had x-rays done which did not show any obvious gas or signs of osteomyelitis. I have shared the results of workup with patient and family and plan of admission which they understand and agree. Discussed with Dr. Haider hospitalist, reviewed history, workup, podiatry recommendation and agreed with admission to the floor. Discussed with Dr.: Jes, Other (Dr. Haider hospitalist) Will see patient in: hospital (observation) Counseled pt/family regarding: lab results, diagnosis, rad results Medical Desision Making - Independent Historian Additional History obtained from: Spouse - Discussion of managment Care discussed with:: hospitalist (Dr. Haider and podiatry Dr. Michelle) Reviewed:: Test results, Need for additional workup Agreed on:: Treatment plan Will see patient: in hospital - Diagnostic Testing Diagnostic test were ordered, analyzed, and reviewed by me: Yes Radiological Interpretation: Reviewed by me - Risk of complications The pt has a mod risk of morbidity or mortality based on: Need for minor surgical intervention in patient with know risk factors The pt has a high risk of morbidity or mortality based on: Decision regarding hospitilization or escalation of hosp level of care - Departure Departure Disposition: Observation Clinical Impression: Toe infection Condition: Stable Critical Care Time: No
[2024-07-02] MEDS ORDERED: MORPHINE SULFATE 4 MG INJ ONE ×2 (11:34→12:47)
[2024-07-02] MEDS: MORPHINE SULFATE 4 MG INJ IM ONE (11:37)
[2024-07-02] MEDS ORDERED: PIPERACILLIN/TAZOBACTAM IV ONE (12:34)
[2024-07-02] MEDS ORDERED: VANCOMYCIN 2 GRAM/400 ML BAG 2 GM/400 ML PIGGYBACK IV ONE (12:35)
[2024-07-02] MEDS ORDERED: Sodium Chloride 100ML MINI-BAG PLUS 100 ML IV ONE (12:35)
[2024-07-02] MEDS: PIPERACILLIN/TAZOBACTAM 3.375 GM in Sodium Chloride 100ML MINI-BAG PLUS 100 ML IV ONE (12:38)
[2024-07-02] MEDS: VANCOMYCIN 2 GRAM/400 ML BAG 2 GM/400 ML PIGGYBACK IV ONE (12:42)
[2024-07-02] MEDS ORDERED: Zofran 4 MG/2 ML VIAL ONE (12:45)
[2024-07-02] MEDS: Zofran 4 MG/2 ML VIAL IV ONE (12:48)
[2024-07-02] MEDS: MORPHINE SULFATE 4 MG INJ IV ONE (12:48)
--- NOTE | 2024-07-02 12:59 | XRAY ---
Indication: Pain. Great toe infection/ulcer. None 3 nonweightbearing views left foot demonstrates osteopenia, tiny posterior/plantar heel spurs, and great toe plantar soft tissue swelling/ulcer. No other bony, articular, or soft tissue abnormalities.
--- NOTE | 2024-07-02 14:24 | PCM.HP ---
<HUANG WOODS - Last Filed: 07/02/24 14:07> History of Present Illness - Chief Complaint Chief Complaint: 1st toe infection Date: 07/02/24 History of Present Illness: is a 83 year old female with a pmhx of DMII, HTN, HLD, GERD, and hy pothyroidism who presented to ED 07/02/24 with complaints of left great toe pain and swelling. Patient reported that approximately 3 weeks ago her occupational therapy aide Dr. Gage Mims in [place] shaved off callus formation on bilateral great toes and subsequently noticed increasing pain and swelling around the left great toe. Denies fever,cough, sob, cp, abdominal pain, NAYLOR, dizziness, N/V/D. Upon arrival to ED, patient was hypertensive otherwise stable vitals. Left foot xray demonstrates great toe plantar soft tissue swelling/ulcer. Lab findings remarkable for slightly elevated creat but at patient's baseline of (1-1.2). Podiatry consulted in ED and performed bedside I&D. Discussed case with Dr. Michelle with plans for further imaging with MRI and possible surgical intervention tomorrow. Patient received vanc/zosyn in ED. Admit for left great toe infection. - Review of Systems Constitutional: No Symptoms Eyes: No Symptoms Ears, Nose, & Throat: No Symptoms Respiratory: No Symptoms Cardiac: No Symptoms Abdominal/Gastrointestinal: No Symptoms Genitourinary Symptoms: No Symptoms Musculoskeletal: Joint Pain (Left great toe with ), Joint Swelling (left great toe) Skin: Other (Open wound to posterior left great toe) Neurological: No Symptoms Psychological: No Symptoms Endocrine: No Symptoms Hematologic/Lymphatic: No Symptoms Immunological/Allergic: No Symptoms Medications & Allergies Home Medications: Home Medication List Gabapentin 300 mg PO BID 12/13/15 [History Confirmed 07/02/24] Levothyroxine Sodium 0.05 mg PO DAILY 12/13/15 [History Confirmed 07/02/24] Metformin HCl 500 mg [Glucophage 500 MG] 1,000 mg PO BID 12/13/15 [History Confirmed 07/02/24] Omeprazole [Prilosec] 40 mg PO DAILY 12/13/15 [History Confirmed 07/02/24] Simvastatin 40 mg PO EVENING MEAL 12/14/15 [History Confirmed 07/02/24] Alendronate Sodium [Fosamax] 70 mg PO WEEKLY 02/03/24 [History Confirmed 07/02/24] Insulin Aspart (Niacinamide) [Fiasp 100 Unit/ml Flextouch] 100 units SQ UD 02/03/24 [History Confirmed 07/02/24] Benazepril HCl 20 mg PO BID 02/14/24 [History Confirmed 07/02/24] Insulin Degludec [Tresiba Flextouch U-100] 11 unit SQ HS 07/02/24 [History Confirmed 07/02/24] Tirzepatide [Mounjaro] 2.5 mg SQ WEEKLY 07/02/24 [History Confirmed 07/02/24] Allergies/Adverse Reactions: Allergies Allergy/AdvReac Type Severity Reaction Status Date / Time prochlorperazine AdvReac Verified 02/19/24 06:10 [From Compazine] - Past Medical History Past Medical History: Yes Neurological History: Peripheral Neuropathy ENT History: Cataracts Cardiac History: Hypertension Respiratory History: No Pertinent History Endocrine Medical History: Diabetes Type II Musculoskelatal History: Osteoarthritis GI Medical History: GERD History: No Pertinent History Pyscho-Social History: No Pertinent History Reproductive Disorders: No Pertinent History Comment: skin cancer on nose, anemia - Past Surgical History Past Surgical History: Yes Neuro Surgical History: No Pertinent History Cardiac History: No Pertinent History Respiratory Surgery: No Pertinent History GI Surgical History: No Pertinent History Genitourinary Surgical Hx: No Pertinent History Musculskeletal Surgical Hx: Other Female Surgical History: No Pertinent History Other Surgical History: R eye, bilateral total Knee, tonsillectomy, R eye cataract removal, R foot surgery Significant Family History: diabetes, other (cancer - dad ) - Social History Smoking Status: Former smoker How long have you smoked: [id number] Exposure to second hand smoke: No Alcohol: None Drug Use: none - Social Determinants of Health Will the patient participate in the screening: Yes Do you worry about a steady place to live?: No Do you have any problems with any of the following?: No known problems In the past 12 months,have you had to go without utilities?: No Have you or anyone in your house had to go without enough: No Transportation Issues: No Has anyone in your support network made you feel unsafe?: No - Physical Exam Vital Signs: Vital Signs - 24 hr Temp Pulse Resp BP BP Pulse Ox 07/02/24 13:14 97 07/02/24 12:00 197/76 96 07/02/24 11:30 173/81 99 07/02/24 11:00 186/69 99 07/02/24 10:47 197/78 99 07/02/24 10:30 205/90 98 07/02/24 10:00 91 H 16 184/85 97 07/02/24 09:26 97.2 F 93 H 18 192/65 98 General Appearance: no apparent distress Neurologic Exam: alert, oriented x 3, cooperative Eye Exam: PERRL/EOMI Ears, Nose, Throat Exam: normal ENT inspection Neck Exam: normal inspection Respiratory Exam: normal breath sounds, lungs clear Cardiovascular Exam: regular rate/rhythm, normal heart sounds Gastrointestinal/Abdomen Exam: soft, normal bowel sounds Pelvic Exam: not done Rectal Exam: deferred Back Exam: normal inspection Extremity Exam: other (Left great toe posterior wound with purulent drainage - surrounding erythema/edema) Results - Labs Lab/Micro Results: Lab Results-Last 24 Hours 07/02/24 07/02/24 Range/Units 09:45 09:45 WBC 7.7 (3.98-10.04) x10^3/uL RBC 3.93 (3.93-5.22) x10^6/uL Hgb 11.6 (11.2-15.7) g/dL Hct 37.3 (34.1-44.9) % MCV 94.9 H (79.4-94.8) fL MCH 29.5 (25.6-32.2) pg MCHC 31.1 L (32.2-35.5) g/dL RDW 15.1 H (11.7-14.4) % Plt Count 227 (182-369) x10^3/uL MPV 9.8 (9.4-12.3) fL Gran % 77.7 H (34.0-71.1) % Immature Gran % (Auto) 0.5 H (0.001-0.429) % Nucleat RBC Rel Count 0.0 (0.00-0.2) % Eos # (Auto) 0.07 (0.04-0.36) x10^3/uL Immature Gran # (Auto) 0.04 H (0.001-0.031) x10^3u/L Absolute Lymphs (auto) 0.99 L (1.18-3.74) x10^3/uL Absolute Monos (auto) 0.58 (0.24-0.86) x10^3/uL Absolute Nucleated RBC 0.00 (0.00-0.012) x10^3u/L Lymphocytes % 12.8 L (19.3-51.7) % Monocytes % 7.5 (4.7-12.5) % Eosinophils % 0.9 (0.7-5.8) % Basophils % 0.6 (0.1-1.2) % Absolute Granulocytes 6.01 (1.56-6.13) x10^3/uL Basophils # 0.05 (0.01-0.08) x10^3/uL Sodium 138 (135-145) mmol/L Potassium 4.2 (3.5-5.1) mmol/L Chloride 106 (98-107) mmol/L Carbon Dioxide 23 (22-30) mmol/L Anion Gap 12.8 (5-15) MEQ/L BUN 16 (7-17) mg/dL Creatinine 1.16 H (0.52-1.04) mg/dL Estimated GFR 47.4 ML/MIN Glucose 123 H (74-106) mg/dL Calcium 8.9 (8.4-10.2) mg/dL Total Bilirubin 0.60 (0.2-1.3) mg/dL AST 21 (14-36) U/L ALT 14 (0-35) U/L Alkaline Phosphatase 54 (38-126) U/L Serum Total Protein 7.4 (6.3-8.2) g/dL Albumin 4.2 (3.5-5.0) g/dL - Radiology Impressions Radiology Exams & Impressions: Radiology Procedures Category Date Time Status FOOT (MINIMUM 3 VIEWS) Stat Exams 07/02/24 11:55 Completed Assessment/Plan (1) Toe infection Current Visit: Yes Status: Acute Assessment & Plan: -Discussed case with Dr. Michelle - will get MRI LLE - per radiology unable to do until morning - will continue vanc/zosyn for now - possible surgical intervention tomorrow -Left foot xray reviewed demonstrating great toe plantar soft tissue swelling/ulcer -CMP, CBC reviewed -Cultures pending Code(s): L08.9 - LOCAL INFECTION OF THE SKIN AND SUBCUTANEOUS TISSUE, UNSP (2) HTN (hypertension) Current Visit: Yes Status: Acute Assessment & Plan: -Continue home meds -Hydralazine PRN for sbp > 180 and DBP > 100 Code(s): I10 - ESSENTIAL (PRIMARY) HYPERTENSION (3) Type 2 diabetes mellitus Current Visit: Yes Status: Acute Assessment & Plan: -SSI -ADA diet -A1c (4) HLD (hyperlipidemia) Current Visit: Yes Status: Acute Assessment & Plan: -continue statin Code(s): E78.5 - HYPERLIPIDEMIA, UNSPECIFIED (5) Hypothyroid Current Visit: Yes Status: Acute Assessment & Plan: -continue synthroid VTE SCD - hold lovenox for surgery PPI: protonix Dispo: 1-2 days Code(s): E03.9 - HYPOTHYROIDISM, UNSPECIFIED <BARBI GONZALEZ - Last Filed: 07/02/24 21:03> History of Present Illness - Chief Complaint History of Present Illness: is a 83 year old female. - Physical Exam Vital Signs: Vital Signs - 24 hr Temp Pulse Resp BP BP Pulse Ox 07/02/24 20:00 97.9 F 82 17 186/74 94 L 07/02/24 17:18 97 07/02/24 15:50 99.0 F 83 16 150/66 94 L 07/02/24 13:38 98.2 F 81 16 188/77 97 07/02/24 12:00 197/76 96 07/02/24 11:30 173/81 99 07/02/24 11:00 186/69 99 07/02/24 10:47 197/78 99 07/02/24 10:30 205/90 98 07/02/24 10:00 91 H 16 184/85 97 07/02/24 09:26 97.2 F 93 H 18 192/65 98 Wound Assessment: Skin/Wound Assessment Wound/Incision Assessment Start: 07/02/24 16:00 Text: Status: Active Freq: Protocol: Document 07/02/24 16:07 RB (Rec: 07/02/24 16:09 RB ) Wound/Incision Assessment Left Lower Posterior Toe Wound Assessment Admission Wound Type DIABETIC ULCER Drainage Amount Moderate Drainage Description Purulent Drainage Odor Foul Odor General Appearance Open to air Length (cm) (cm) 3 Width (cm) (cm) 1.5 Wound Bed Greatest Portion Red (Granulation),Yellow ( Slough) Surrounding Tissue Dark Red Wound Photo Photo Taken Yes Date: 07/02/24 Time: 15:00 Results - Labs Lab/Micro Results: Lab Results-Last 24 Hours 07/02/24 07/02/24 07/02/24 Range/Units 09:35 09:45 09:45 WBC 7.7 (3.98-10.04) x10^3/uL RBC 3.93 (3.93-5.22) x10^6/uL Hgb 11.6 (11.2-15.7) g/dL Hct 37.3 (34.1-44.9) % MCV 94.9 H (79.4-94.8) fL MCH 29.5 (25.6-32.2) pg MCHC 31.1 L (32.2-35.5) g/dL RDW 15.1 H (11.7-14.4) % Plt Count 227 (182-369) x10^3/uL MPV 9.8 (9.4-12.3) fL Gran % 77.7 H (34.0-71.1) % Immature Gran % (Auto) 0.5 H (0.001-0.429) % Nucleat RBC Rel Count 0.0 (0.00-0.2) % Eos # (Auto) 0.07 (0.04-0.36) x10^3/uL Immature Gran # (Auto) 0.04 H (0.001-0.031) x10^3u/L Absolute Lymphs (auto) 0.99 L (1.18-3.74) x10^3/uL Absolute Monos (auto) 0.58 (0.24-0.86) x10^3/uL Absolute Nucleated RBC 0.00 (0.00-0.012) x10^3u/L Lymphocytes % 12.8 L (19.3-51.7) % Monocytes % 7.5 (4.7-12.5) % Eosinophils % 0.9 (0.7-5.8) % Basophils % 0.6 (0.1-1.2) % Absolute Granulocytes 6.01 (1.56-6.13) x10^3/uL Basophils # 0.05 (0.01-0.08) x10^3/uL ESR (0-20) mm/hr Sodium 138 (135-145) mmol/L Potassium 4.2 (3.5-5.1) mmol/L Chloride 106 (98-107) mmol/L Carbon Dioxide 23 (22-30) mmol/L Anion Gap 12.8 (5-15) MEQ/L BUN 16 (7-17) mg/dL Creatinine 1.16 H (0.52-1.04) mg/dL Estimated GFR 47.4 ML/MIN Glucose 123 H (74-106) mg/dL Hemoglobin A1c 5.86 (4.5-6.0) % Calcium 8.9 (8.4-10.2) mg/dL Total Bilirubin 0.60 (0.2-1.3) mg/dL AST 21 (14-36) U/L ALT 14 (0-35) U/L Alkaline Phosphatase 54 (38-126) U/L Serum Total Protein 7.4 (6.3-8.2) g/dL Albumin 4.2 (3.5-5.0) g/dL 07/02/24 Range/Units 15:00 WBC (3.98-10.04) x10^3/uL RBC (3.93-5.22) x10^6/uL Hgb (11.2-15.7) g/dL Hct (34.1-44.9) % MCV (79.4-94.8) fL MCH (25.6-32.2) pg MCHC (32.2-35.5) g/dL RDW (11.7-14.4) % Plt Count (182-369) x10^3/uL MPV (9.4-12.3) fL Gran % (34.0-71.1) % Immature Gran % (Auto) (0.001-0.429) % Nucleat RBC Rel Count (0.00-0.2) % Eos # (Auto) (0.04-0.36) x10^3/uL Immature Gran # (Auto) (0.001-0.031) x10^3u/L Absolute Lymphs (auto) (1.18-3.74) x10^3/uL Absolute Monos (auto) (0.24-0.86) x10^3/uL Absolute Nucleated RBC (0.00-0.012) x10^3u/L Lymphocytes % (19.3-51.7) % Monocytes % (4.7-12.5) % Eosinophils % (0.7-5.8) % Basophils % (0.1-1.2) % Absolute Granulocytes (1.56-6.13) x10^3/uL Basophils # (0.01-0.08) x10^3/uL ESR 46 H (0-20) mm/hr Sodium (135-145) mmol/L Potassium (3.5-5.1) mmol/L Chloride (98-107) mmol/L Carbon Dioxide (22-30) mmol/L Anion Gap (5-15) MEQ/L BUN (7-17) mg/dL Creatinine (0.52-1.04) mg/dL Estimated GFR ML/MIN Glucose (74-106) mg/dL Hemoglobin A1c (4.5-6.0) % Calcium (8.4-10.2) mg/dL Total Bilirubin (0.2-1.3) mg/dL AST (14-36) U/L ALT (0-35) U/L Alkaline Phosphatase (38-126) U/L Serum Total Protein (6.3-8.2) g/dL Albumin (3.5-5.0) g/dL Accuchecks Date 07/02/24 Time 16:39 - Radiology Impressions Radiology Exams & Impressions: Radiology Procedures Category Date Time Status FOOT (MINIMUM 3 VIEWS) Stat Exams 07/02/24 11:55 Completed MRI LOWER EXT W/O CONTRAST [MRI] Routine Exams 07/03/24 06:00 Ordered KEVIN Encounter - KEVIN Encounter Attestation KEVIN Encounter Attestation: "IhopalpersonallysRODDY Aguirre andhavediscussed pertinent aspects of their care with Huang Blackwell agree with the history, physical exam (any modifications based on my personal exam will be noted below), assessment, and plan as outlined in original note. Please see immediately below for my summary of findings and additional assessment and plan along with any meaningful corrections/explanations to the Subjective/Objective portions of the KEVIN note will be noted." My portion of the encounter took place via telemedicine. -Left foot ulcer and cellulitis after callus removal of left foot as outpatient by her occupational therapy aide. Underwent I&D in the ER by Dr. Cifuentes today with plan for further intervention dependent on MRI. Started on broad spectrum IV antibiotics.
[2024-07-02] MEDS ORDERED: Zofran 4 MG/2 ML VIAL IV PRN (14:33)
[2024-07-02] MEDS ORDERED: TYLENOL 325 MG PO PRN (14:33)
[2024-07-02] MEDS: PHARMACY DOSING REQUIRED: VANCOMYCIN IV STA (15:54)
[2024-07-02] MEDS: Piperacillin/Tazobactam 2.25 GM 2.25 GM in Sodium Chloride 100ML MINI-BAG PLUS 100 ML IV SCH (17:20)
[2024-07-02] MEDS: ZOCOR 20MG PO SCH (17:38)
[2024-07-02] MEDS ORDERED: PIPERACILLIN/TAZOBACTAM 3.375 GM in Sodium Chloride 100ML MINI-BAG PLUS 100 ML IV SCH (18:00)
[2024-07-02] MEDS: APRESOLINE 20 MG/ML INJ IV PRN (19:32)
[2024-07-02] MEDS: Lotensin PO SCH (21:52)
[2024-07-02] MEDS: Lantus Insulin SQ SCH (21:52)
[2024-07-02] MEDS: NEURONTIN PO SCH (21:52)
[2024-07-02] MEDS ORDERED: BENAZEPRIL HCL 20 MG PO SCH (22:00)
[2024-07-03] MEDS: MORPHINE SULFATE 2 MG INJ IV PRN (01:53)
--- NOTE | 2024-07-03 05:09 | PCM.NOTE ---
Date and Time: 07/03/24 0508 Subjective Assessment: is a 83 year old female with a pmhx of DMII, HTN, HLD, GERD, and hypothyroidism who presented to ED 07/02/24 with complaints of left great toe pain and swelling. Patient reported that approximately 3 weeks ago her compliance auditor Dr. Gage Mims in [place] shaved off callus formation on bilateral great toes and subsequently noticed increasing pain and swelling around the left great toe. Denies fever,cough, sob, cp, abdominal pain, NAYLOR, dizziness, N/V/D. Upon arrival to ED, patient was hypertensive otherwise stable vitals. Left foot xray demonstrates great toe plantar soft tissue swelling/ulcer. Lab findings remarkable for slightly elevated creat but at patient's baseline of (1-1.2). Podiatry consulted in ED and performed bedside I&D. Discussed case with Dr. Michelle with plans for further imaging with MRI and possible surgical intervention tomorrow. Patient received vanc/zosyn in ED. Admit for left great toe infection. 07/03: Met with patient and spouse at bedside. Endorses improvement in pain to left great toe. Plan for I&D today. MRI with Nonspecific plantar soft tissue swe lling/edema, greatest 1st toe. 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 Remaining MRI left foot without contrast exam is negative. Plan to continue vanc/zosyn for now. Podiatry following. - Review of Systems Constitutional: No Symptoms Eyes: No Symptoms Ears, Nose, & Throat: No Symptoms Respiratory: No Symptoms Cardiac: No Symptoms Abdominal/Gastrointestinal: No Symptoms Genitourinary Symptoms: No Symptoms Musculoskeletal: Other (left great toe pain/swelling) Skin: Skin Lesions (posterior left great toe open wound ) Neurological: No Symptoms Psychological: No Symptoms Endocrine: No Symptoms Hematologic/Lymphatic: No Symptoms Immunological/Allergic: No Symptoms Objective Exam General Appearance: no apparent distress Neurologic Exam: alert, oriented x 3, cooperative Skin Exam: normal color, other (wound to posterior aspect of left great toe with surrounding erythema/edema - wrapped in dressing CDI) Wound Assessment: Skin/Wound Assessment Wound/Incision Assessment Start: 07/02/24 16:00 Text: Status: Active Freq: Protocol: Document 07/02/24 16:07 RB (Rec: 07/02/24 16:09 RB [id number]) Wound/Incision Assessment Left Lower Posterior Toe Wound Assessment Admission Wound Type DIABETIC ULCER Drainage Amount Moderate Drainage Description Purulent Drainage Odor Foul Odor General Appearance Open to air Length (cm) (cm) 3 Width (cm) (cm) 1.5 Wound Bed Greatest Portion Red (Granulation),Yellow ( Slough) Surrounding Tissue Dark Red Wound Photo Photo Taken Yes Date: 07/02/24 Time: 15:00 Eye Exam: PERRL Ears, Nose, Throat Exam: normal ENT inspection Neck Exam: normal inspection Respiratory Exam: normal breath sounds, lungs clear Cardiovascular Exam: regular rate/rhythm, normal heart sounds Gastrointestinal/Abdomen Exam: soft, normal bowel sounds Extremity Exam: normal inspection Back Exam: normal inspection Pelvic Exam: deferred Rectal Exam: deferred Objective Data Vital Signs: Vital Signs - 24 hr Temp Pulse Resp BP BP Pulse Ox 07/03/24 04:00 98.3 F 79 16 183/74 96 07/03/24 00:00 98.7 F 87 16 170/74 97 07/02/24 20:00 97.9 F 82 17 186/74 94 L 07/02/24 17:18 97 07/02/24 15:50 99.0 F 83 16 150/66 94 L 07/02/24 13:38 98.2 F 81 16 188/77 97 07/02/24 12:00 197/76 96 07/02/24 11:30 173/81 99 07/02/24 11:00 186/69 99 07/02/24 10:47 197/78 99 07/02/24 10:30 205/90 98 07/02/24 10:00 91 H 16 184/85 97 07/02/24 09:26 97.2 F 93 H 18 192/65 98 Pain Assessment - Last Documented Pain Intensity 6 Pain Scale Used 0-10 Pain Scale Intake and Output: Intake & Output 06/30/24 07/01/24 07/02/24 07/03/24 11:59 11:59 11:59 11:59 Intake Total 1222 Balance 1222 Weight 76.814 kg 76.814 kg Lab Results: Lab Results-Last 24 Hours 07/02/24 07/02/24 07/02/24 Range/Units 09:35 09:45 09:45 WBC 7.7 (3.98-10.04) x10^3/uL RBC 3.93 (3.93-5.22) x10^6/uL Hgb 11.6 (11.2-15.7) g/dL Hct 37.3 (34.1-44.9) % MCV 94.9 H (79.4-94.8) fL MCH 29.5 (25.6-32.2) pg MCHC 31.1 L (32.2-35.5) g/dL RDW 15.1 H (11.7-14.4) % Plt Count 227 (182-369) x10^3/uL MPV 9.8 (9.4-12.3) fL Gran % 77.7 H (34.0-71.1) % Immature Gran % (Auto) 0.5 H (0.001-0.429) % Nucleat RBC Rel Count 0.0 (0.00-0.2) % Eos # (Auto) 0.07 (0.04-0.36) x10^3/uL Immature Gran # (Auto) 0.04 H (0.001-0.031) x10^3u/L Absolute Lymphs (auto) 0.99 L (1.18-3.74) x10^3/uL Absolute Monos (auto) 0.58 (0.24-0.86) x10^3/uL Absolute Nucleated RBC 0.00 (0.00-0.012) x10^3u/L Lymphocytes % 12.8 L (19.3-51.7) % Monocytes % 7.5 (4.7-12.5) % Eosinophils % 0.9 (0.7-5.8) % Basophils % 0.6 (0.1-1.2) % Absolute Granulocytes 6.01 (1.56-6.13) x10^3/uL Basophils # 0.05 (0.01-0.08) x10^3/uL ESR (0-20) mm/hr Sodium 138 (135-145) mmol/L Potassium 4.2 (3.5-5.1) mmol/L Chloride 106 (98-107) mmol/L Carbon Dioxide 23 (22-30) mmol/L Anion Gap 12.8 (5-15) MEQ/L BUN 16 (7-17) mg/dL Creatinine 1.16 H (0.52-1.04) mg/dL Estimated GFR 47.4 ML/MIN Glucose 123 H (74-106) mg/dL Hemoglobin A1c 5.86 (4.5-6.0) % Calcium 8.9 (8.4-10.2) mg/dL Total Bilirubin 0.60 (0.2-1.3) mg/dL AST 21 (14-36) U/L ALT 14 (0-35) U/L Alkaline Phosphatase 54 (38-126) U/L Serum Total Protein 7.4 (6.3-8.2) g/dL Albumin 4.2 (3.5-5.0) g/dL 07/02/24 Range/Units 15:00 WBC (3.98-10.04) x10^3/uL RBC (3.93-5.22) x10^6/uL Hgb (11.2-15.7) g/dL Hct (34.1-44.9) % MCV (79.4-94.8) fL MCH (25.6-32.2) pg MCHC (32.2-35.5) g/dL RDW (11.7-14.4) % Plt Count (182-369) x10^3/uL MPV (9.4-12.3) fL Gran % (34.0-71.1) % Immature Gran % (Auto) (0.001-0.429) % Nucleat RBC Rel Count (0.00-0.2) % Eos # (Auto) (0.04-0.36) x10^3/uL Immature Gran # (Auto) (0.001-0.031) x10^3u/L Absolute Lymphs (auto) (1.18-3.74) x10^3/uL Absolute Monos (auto) (0.24-0.86) x10^3/uL Absolute Nucleated RBC (0.00-0.012) x10^3u/L Lymphocytes % (19.3-51.7) % Monocytes % (4.7-12.5) % Eosinophils % (0.7-5.8) % Basophils % (0.1-1.2) % Absolute Granulocytes (1.56-6.13) x10^3/uL Basophils # (0.01-0.08) x10^3/uL ESR 46 H (0-20) mm/hr Sodium (135-145) mmol/L Potassium (3.5-5.1) mmol/L Chloride (98-107) mmol/L Carbon Dioxide (22-30) mmol/L Anion Gap (5-15) MEQ/L BUN (7-17) mg/dL Creatinine (0.52-1.04) mg/dL Estimated GFR ML/MIN Glucose (74-106) mg/dL Hemoglobin A1c (4.5-6.0) % Calcium (8.4-10.2) mg/dL Total Bilirubin (0.2-1.3) mg/dL AST (14-36) U/L ALT (0-35) U/L Alkaline Phosphatase (38-126) U/L Serum Total Protein (6.3-8.2) g/dL Albumin (3.5-5.0) g/dL Radiology Exams: Radiology Procedures Category Date Time Status FOOT (MINIMUM 3 VIEWS) Stat Exams 07/02/24 11:55 Completed MRI LOWER EXT W/O CONTRAST [MRI] Routine Exams 07/03/24 06:00 Ordered Multi-Disciplinary Progress Notes: Multi-Disciplinary Progress Notes 07/02/24 14:52 Pharmacy Note by Jg Luo Vancomycin dosed at 1gm daily. Trough Sunday with 10am dose. Will watch creatinine and adjust dose if needed. Initialized on 07/02/24 14:52 - END OF NOTE 07/02/24 14:44 Pharmacy Note by Jg Luo Zosyn dose decreased to 2.25gm iv q6h per renal dosing policy. Estimated crcl is 32ml/min. Initialized on 07/02/24 14:44 - END OF NOTE Assessment/Plan (1) Toe infection Current Visit: Yes Status: Acute Assessment & Plan: -Discussed case with Dr. Michelle - will get MRI LLE - per radiology unable to do until morning - will continue vanc/zosyn for now - possible surgical intervention tomorrow -Left foot xray reviewed demonstrating great toe plantar soft tissue swelling/ulcer -CMP, CBC reviewed -Cultures pending 12/12: -MRI lower demonstrates Nonspecific plantar soft tissue swelling/edema, greatest 1st toe. 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 Remaining MRI left foot without contrast exam is negative. -continue vanc/zosyn pending culture results -Reviewed podiatry documentation - plan I&D today -Wound culture pending Code(s): L08.9 - LOCAL INFECTION OF THE SKIN AND SUBCUTANEOUS TISSUE, UNSP HILARY - creat reviewed at 1.25 - baseline around 1-1.2 -monitor renal/lytes (2) HTN (hypertension) Current Visit: Yes Status: Acute Assessment & Plan: -increase dose of benazepril to 40mg bid -add amlodipine -Hydralazine PRN for sbp > 180 and DBP > 100 Code(s): I10 - ESSENTIAL (PRIMARY) HYPERTENSION (3) Type 2 diabetes mellitus Current Visit: Yes Status: Acute Assessment & Plan: -SSI -ADA diet -A1c at 5.86 (4) HLD (hyperlipidemia) Current Visit: Yes Status: Acute Assessment & Plan: -continue statin Code(s): E78.5 - HYPERLIPIDEMIA, UNSPECIFIED (5) Hypothyroid Current Visit: Yes Status: Acute Assessment & Plan: -continue synthroid VTE SCD - hold lovenox for surgery PPI: protonix Dispo: 1-2 days Code(s): L08.9 - LOCAL INFECTION OF THE SKIN AND SUBCUTANEOUS TISSUE, UNSP (2) HTN (hypertension) Current Visit: Yes Status: Acute Code(s): I10 - ESSENTIAL (PRIMARY) HYPERTENSION (3) Type 2 diabetes mellitus Current Visit: Yes Status: Acute (4) HLD (hyperlipidemia) Current Visit: Yes Status: Acute Code(s): E78.5 - HYPERLIPIDEMIA, UNSPECIFIED (5) Hypothyroid Current Visit: Yes Status: Acute Code(s): E03.9 - HYPOTHYROIDISM, UNSPECIFIED (6) HILARY (acute kidney injury) Current Visit: Yes Status: Acute Code(s): N17.9 - ACUTE KIDNEY FAILURE, UNSPECIFIED
[2024-07-03 05:49] LABS: Absolute Neutrophil Ct (ANC) 5.12 x10^3/uL (1.56-6.13); BASOPHIL % 0.5 % (0.1-1.2); Basophil (Absolute #) 0.04 x10^3/uL (0.01-0.08); Eosinophil % 3.3 % (0.7-5.8); Eosinophil (Absolute #) 0.24 x10^3/uL (0.04-0.36); Hematocrit 33.5 % (34.1-44.9); Hemoglobin 10.6 g/dL (11.2-15.7); IMMATURE GRAN # 0.02 x10^3u/L (0.001-0.031); IMMATURE GRAN % 0.3 % (0.001-0.429); Lymphocyte (Absolute #) 1.25 x10^3/uL (1.18-3.74); Lymphocytes % 17.1 % (19.3-51.7); Mean Cell Volume 93.8 fL (79.4-94.8); Mean Corpuscular Hemoglobin 29.7 pg (25.6-32.2); Mean Corpuscular Hgb Concent. 31.6 g/dL (32.2-35.5); Mean Platelet Volume 10.2 fL (9.4-12.3); Monocyte (Absolute #) 0.65 x10^3/uL (0.24-0.86); Monocytes % 8.9 % (4.7-12.5); Neutrophil % 69.9 % (34.0-71.1); Platelet Count 229 x10^3/uL (182-369); Red Blood Count 3.57 x10^6/uL (3.93-5.22); Red Cell Distribution Width 15.4 % (11.7-14.4); White Blood Count 7.3 x10^3/uL (3.98-10.04)
[2024-07-03 06:08] LABS: ALBUMIN 3.7 g/dL (3.5-5.0); ANION GAP 10.1 MEQ/L (5-15); BILIRUBIN,TOTAL 0.4 mg/dL (0.2-1.3); Calcium 9.1 mg/dL (8.4-10.2); Creatinine 1 1.25 mg/dL (0.52-1.04); EST GLOMERULAR FILTRATION RATE 43.3 ML/MIN; Potassium 4.2 mmol/L (3.5-5.1); Total Protein 6.7 g/dL (6.3-8.2)
--- NOTE | 2024-07-03 07:12 | PCM.CONS ---
Podiatry HPI - Consult Consulting Provider: JOI LYNN DPM - HPI History of Present Illness: Giselle is a very pleasant 83-year-old female with signficant PMHx of well controlled DMII, HTN, HLD who presented to the emergency department this morning with concerns of pain to the left great toe with evidence of a unroofed blister and cellulitis. Patient indicates she had bilateral big toes callus shaved off [address] Funez in [place] which subsequently appeared to become more painful and swollen. Patient reports because of the swelling is developing ingrown toenail which is making the pain even more worse. No fever or chills reported. Difficulty ambulation. She denies any consitutional symptoms of infection. She denies any other pedal complaints at this time. Medications & Allergies Home Medications: Home Medication List Gabapentin 300 mg PO BID 12/13/15 [History Confirmed 07/02/24] Levothyroxine Sodium 0.05 mg PO DAILY 12/13/15 [History Confirmed 07/02/24] Metformin HCl 500 mg [Glucophage 500 MG] 1,000 mg PO BID 12/13/15 [History Confirmed 07/02/24] Omeprazole [Prilosec] 40 mg PO DAILY 12/13/15 [History Confirmed 07/02/24] Simvastatin 40 mg PO EVENING MEAL 12/14/15 [History Confirmed 07/02/24] Alendronate Sodium [Fosamax] 70 mg PO WEEKLY 02/03/24 [History Confirmed 07/02/24] Insulin Aspart (Niacinamide) [Fiasp 100 Unit/ml Flextouch] 100 units SQ UD 02/03/24 [History Confirmed 07/02/24] Benazepril HCl 20 mg PO BID 02/14/24 [History Confirmed 07/02/24] Insulin Degludec [Tresiba Flextouch U-100] 11 unit SQ HS 07/02/24 [History Confirmed 07/02/24] Tirzepatide [Mounjaro] 2.5 mg SQ WEEKLY 07/02/24 [History Confirmed 07/02/24] Allergies/Adverse Reactions: Allergies Allergy/AdvReac Type Severity Reaction Status Date / Time prochlorperazine AdvReac Verified 02/19/24 06:10 [From Compazine] - Past Medical History Past Medical History: Yes Neurological History: Peripheral Neuropathy ENT History: Cataracts Cardiac History: Hypertension Respiratory History: No Pertinent History Endocrine Medical History: Diabetes Type II Musculoskelatal History: Osteoarthritis GI Medical History: GERD History: No Pertinent History Pyscho-Social History: No Pertinent History Reproductive Disorders: No Pertinent History Comment: skin cancer on nose, anemia - Past Surgical History Past Surgical History: Yes Neuro Surgical History: No Pertinent History Cardiac History: No Pertinent History Respiratory Surgery: No Pertinent History GI Surgical History: No Pertinent History Genitourinary Surgical Hx: No Pertinent History Musculskeletal Surgical Hx: Other Female Surgical History: No Pertinent History Other Surgical History: R eye, bilateral total Knee, tonsillectomy, R eye cataract removal, R foot surgery Significant Family History: diabetes, other (cancer - dad ) - Social History Smoking Status: Former smoker How long have you smoked: [id number] Exposure to second hand smoke: No Alcohol: None Drug Use: none - Social Determinants of Health Will the patient participate in the screening: Yes Do you worry about a steady place to live?: No Do you have any problems with any of the following?: No known problems In the past 12 months,have you had to go without utilities?: No Have you or anyone in your house had to go without enough: No Transportation Issues: No Has anyone in your support network made you feel unsafe?: No Does the patient want assistance with any of the above?: No Physical Exam - Narrative Narrative Physical Exam: Podiatry Physical Exam Results - Labs Lab/Micro Results: Lab Results-Last 24 Hours 07/02/24 07/02/24 07/02/24 Range/Units 09:35 09:45 09:45 WBC 7.7 (3.98-10.04) x10^3/uL RBC 3.93 (3.93-5.22) x10^6/uL Hgb 11.6 (11.2-15.7) g/dL Hct 37.3 (34.1-44.9) % MCV 94.9 H (79.4-94.8) fL MCH 29.5 (25.6-32.2) pg MCHC 31.1 L (32.2-35.5) g/dL RDW 15.1 H (11.7-14.4) % Plt Count 227 (182-369) x10^3/uL MPV 9.8 (9.4-12.3) fL Gran % 77.7 H (34.0-71.1) % Immature Gran % (Auto) 0.5 H (0.001-0.429) % Nucleat RBC Rel Count 0.0 (0.00-0.2) % Eos # (Auto) 0.07 (0.04-0.36) x10^3/uL Immature Gran # (Auto) 0.04 H (0.001-0.031) x10^3u/L Absolute Lymphs (auto) 0.99 L (1.18-3.74) x10^3/uL Absolute Monos (auto) 0.58 (0.24-0.86) x10^3/uL Absolute Nucleated RBC 0.00 (0.00-0.012) x10^3u/L Lymphocytes % 12.8 L (19.3-51.7) % Monocytes % 7.5 (4.7-12.5) % Eosinophils % 0.9 (0.7-5.8) % Basophils % 0.6 (0.1-1.2) % Absolute Granulocytes 6.01 (1.56-6.13) x10^3/uL Basophils # 0.05 (0.01-0.08) x10^3/uL ESR (0-20) mm/hr Sodium 138 (135-145) mmol/L Potassium 4.2 (3.5-5.1) mmol/L Chloride 106 (98-107) mmol/L Carbon Dioxide 23 (22-30) mmol/L Anion Gap 12.8 (5-15) MEQ/L BUN 16 (7-17) mg/dL Creatinine 1.16 H (0.52-1.04) mg/dL Estimated GFR 47.4 ML/MIN Glucose 123 H (74-106) mg/dL Hemoglobin A1c 5.86 (4.5-6.0) % Calcium 8.9 (8.4-10.2) mg/dL Total Bilirubin 0.60 (0.2-1.3) mg/dL AST 21 (14-36) U/L ALT 14 (0-35) U/L Alkaline Phosphatase 54 (38-126) U/L Serum Total Protein 7.4 (6.3-8.2) g/dL Albumin 4.2 (3.5-5.0) g/dL 07/02/24 07/03/24 07/03/24 Range/Units 15:00 05:41 05:41 WBC 7.3 (3.98-10.04) x10^3/uL RBC 3.57 L (3.93-5.22) x10^6/uL Hgb 10.6 L (11.2-15.7) g/dL Hct 33.5 L (34.1-44.9) % MCV 93.8 (79.4-94.8) fL MCH 29.7 (25.6-32.2) pg MCHC 31.6 L (32.2-35.5) g/dL RDW 15.4 H (11.7-14.4) % Plt Count 229 (182-369) x10^3/uL MPV 10.2 (9.4-12.3) fL Gran % 69.9 (34.0-71.1) % Immature Gran % (Auto) 0.3 (0.001-0.429) % Nucleat RBC Rel Count 0.0 (0.00-0.2) % Eos # (Auto) 0.24 (0.04-0.36) x10^3/uL Immature Gran # (Auto) 0.02 (0.001-0.031) x10^3u/L Absolute Lymphs (auto) 1.25 (1.18-3.74) x10^3/uL Absolute Monos (auto) 0.65 (0.24-0.86) x10^3/uL Absolute Nucleated RBC 0.00 (0.00-0.012) x10^3u/L Lymphocytes % 17.1 L (19.3-51.7) % Monocytes % 8.9 (4.7-12.5) % Eosinophils % 3.3 (0.7-5.8) % Basophils % 0.5 (0.1-1.2) % Absolute Granulocytes 5.12 (1.56-6.13) x10^3/uL Basophils # 0.04 (0.01-0.08) x10^3/uL ESR 46 H (0-20) mm/hr Sodium 137 (135-145) mmol/L Potassium 4.2 (3.5-5.1) mmol/L Chloride 105 (98-107) mmol/L Carbon Dioxide 26 (22-30) mmol/L Anion Gap 10.1 (5-15) MEQ/L BUN 17 (7-17) mg/dL Creatinine 1.25 H (0.52-1.04) mg/dL Estimated GFR 43.3 ML/MIN Glucose 112 H (74-106) mg/dL Hemoglobin A1c (4.5-6.0) % Calcium 9.1 (8.4-10.2) mg/dL Total Bilirubin 0.40 (0.2-1.3) mg/dL AST 18 (14-36) U/L ALT 11 (0-35) U/L Alkaline Phosphatase 45 (38-126) U/L Serum Total Protein 6.7 (6.3-8.2) g/dL Albumin 3.7 (3.5-5.0) g/dL Accuchecks Date 07/02/24 Time 16:39 - Radiology Impressions Radiology Exams & Impressions: Radiology Procedures Category Date Time Status FOOT (MINIMUM 3 VIEWS) Stat Exams 07/02/24 11:55 Completed MRI LOWER EXT W/O CONTRAST [MRI] Routine Exams 07/03/24 06:00 Ordered Assessment/Plan (1) Diabetic foot ulcer associated with type 2 diabetes mellitus Current Visit: Yes Status: Acute Assessment & Plan: Well controlled diabetes with some loss of protective sensation. Code(s): E11.621 - TYPE 2 DIABETES MELLITUS WITH FOOT ULCER; L97.509 - NON-PRESSURE CHRONIC ULCER OTH PRT UNSP FOOT W UNSP SEVERITY (2) Abscess of toe of right foot Current Visit: Yes Status: Acute Assessment & Plan: Inital patient examination and evaluation Radiographs reviewed demonstrating no significant change with in the quality of the bone or obvious gas within the soft tissue At this time abcess was drained at bedside demonstrating 5 cc of extremely purulent drainage and demonstrates a positive probe to bone. At this time options were discussed with patient however would like to obtain MRI without contrast to better evaluate for possibility of bone infection or septic infection to the interphalangeal joint Vancomycin and zosyn for now Cultures obtained at bedside NPO at midnight Consent will be determined after MRI obtained however plan will likely be Incision and draiange vs open amputation of the right great toe. Will follow with you Code(s): L02.611 - CUTANEOUS ABSCESS OF RIGHT FOOT (3) Right foot pain Current Visit: No Status: Acute Code(s): M79.671 - PAIN IN RIGHT FOOT (4) Toe infection Current Visit: Yes Status: Acute Code(s): L08.9 - LOCAL INFECTION OF THE SKIN AND SUBCUTANEOUS TISSUE, UNSP (5) Type 2 diabetes mellitus Current Visit: Yes Status: Acute
[2024-07-03] MEDS: Lotensin PO SCH (08:17)
[2024-07-03] MEDS: SYNTHROID 50 MCG PO SCH (08:17)
[2024-07-03] MEDS: VANCOMYCIN 1 GRAM/200 ML BAG 1 GM/200 ML PIGGYBACK IV SCH (08:18)
[2024-07-03] MEDS: Protonix 40MG Tablet PO SCH (08:18)
--- NOTE | 2024-07-03 08:58 | XRAY ---
Indication: Great toe infection. Sagittal, coronal, and axial MRI left forefoot performed without contrast using T1, T2, and STIR sequences. Comparison: None Visualized left forefoot articulation is anatomic. Plantar aspect of all phalanges demonstrates minimal/mild subcutaneous soft tissue swelling/edema signal, greatest 1st toe. No focal solid/cystic soft tissue mass or abnormal fluid collection. Visualized flexor and extensor mechanism unremarkable. 3rd cuneiform demonstrates 4 mm subcortical bone cyst. No acute fracture, suspicious bony lesions, or abnormal bone marrow signal. Impression: Nonspecific plantar soft tissue swelling/edema, greatest 1st toe. 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 Remaining MRI left foot without contrast exam is negative.
[2024-07-03] MEDS: NORVASC 5 MG PO SCH (10:37)
[2024-07-03] MEDS: Lactated Ringers 1,000 ML IV SCH (11:46)
[2024-07-03] MEDS ORDERED: Marcaine Mpf 0.5% Vial 30 Ml ONE (12:45)
[2024-07-03] MEDS ORDERED: XYLOCAINE 1% HCL 20 ML MDV ONE (12:45)
[2024-07-03] MEDS ORDERED: DIPRIVAN 200 MG/20 ML IV ONE (13:12)
[2024-07-03] MEDS: PHARMACY DOSING REQUEST MC ONE (16:58)
[2024-07-03] MEDS: HUMALOG SQ PRN (17:13)
[2024-07-04] MEDS: APRESOLINE 20 MG/ML INJ IV PRN (00:05)
--- NOTE | 2024-07-04 05:03 | PCM.NOTE ---
Date and Time: 07/04/24 0503 Subjective Assessment: is a 83 year old female with a pmhx of DMII, HTN, HLD, GERD, and hypothyroidism who presented to ED 07/02/24 with complaints of left great toe pain and swelling. Patient reported that approximately 3 weeks ago her yield improvement engineer Dr. Gage Mims in [place] shaved off callus formation on bilateral great toes and subsequently noticed increasing pain and swelling around the left great toe. Denies fever,cough, sob, cp, abdominal pain, NAY[place], dizziness, N/V/D. Upon arrival to ED, patient was hypertensive otherwise stable vitals. Left foot xray demonstrates great toe plantar soft tissue swelling/ulcer. Lab findings remarkable for slightly elevated creat but at patient's baseline of (1-1.2). Podiatry consulted in ED and performed bedside I&D. Discussed case with Dr. Michelle with plans for further imaging with MRI and possible surgical intervention tomorrow. Patient received vanc/zosyn in ED. Admit for left great toe infection. 07/03: Met with patient and spouse at bedside. Endorses improvement in pain to left great toe. Plan for I&D today. MRI with Nonspecific plantar soft tissue swe lling/edema, greatest 1st toe. 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 Remaining MRI left foot without contrast exam is negative. Plan to continue vanc/zosyn for now. Podiatry following. Objective Exam Wound Assessment: Skin/Wound Assessment Wound/Incision Assessment Start: 07/02/24 16:00 Text: Status: Active Freq: Protocol: Document 07/02/24 16:07 RB (Rec: 07/02/24 16:09 RB [id number]) Wound/Incision Assessment Left Lower Posterior Toe Wound Assessment Admission Wound Type DIABETIC ULCER Drainage Amount Moderate Drainage Description Purulent Drainage Odor Foul Odor General Appearance Open to air Length (cm) (cm) 3 Width (cm) (cm) 1.5 Wound Bed Greatest Portion Red (Granulation),Yellow ( Slough) Surrounding Tissue Dark Red Wound Photo Photo Taken Yes Date: 07/02/24 Time: 15:00 Objective Data Vital Signs: Vital Signs - 24 hr Temp Pulse Resp BP Pulse Ox 07/04/24 03:00 98.7 F 95 H 18 152/66 95 07/03/24 23:51 98.7 F 93 H 18 198/75 95 07/03/24 20:00 99.3 F 97 H 17 154/76 95 07/03/24 16:00 98.2 F 99 H 20 177/72 93 L 07/03/24 12:11 99 F 87 20 158/70 96 07/03/24 12:00 99 F 87 20 158/70 96 07/03/24 08:00 97.9 F 86 20 196/79 97 Pain Assessment - Last Documented Pain Intensity 7 Pain Scale Used 0-10 Pain Scale Intake and Output: Intake & Output 07/01/24 07/02/24 07/03/24 07/04/24 11:59 11:59 11:59 11:59 Intake Total 1222 1660 Balance 1222 1660 Weight 76.814 kg 76.1 kg 76.1 kg Lab Results: Lab Results-Last 24 Hours 07/03/24 07/03/24 Range/Units 05:41 05:41 WBC 7.3 (3.98-10.04) x10^3/uL RBC 3.57 L (3.93-5.22) x10^6/uL Hgb 10.6 L (11.2-15.7) g/dL Hct 33.5 L (34.1-44.9) % MCV 93.8 (79.4-94.8) fL MCH 29.7 (25.6-32.2) pg MCHC 31.6 L (32.2-35.5) g/dL RDW 15.4 H (11.7-14.4) % Plt Count 229 (182-369) x10^3/uL MPV 10.2 (9.4-12.3) fL Gran % 69.9 (34.0-71.1) % Immature Gran % (Auto) 0.3 (0.001-0.429) % Nucleat RBC Rel Count 0.0 (0.00-0.2) % Eos # (Auto) 0.24 (0.04-0.36) x10^3/uL Immature Gran # (Auto) 0.02 (0.001-0.031) x10^3u/L Absolute Lymphs (auto) 1.25 (1.18-3.74) x10^3/uL Absolute Monos (auto) 0.65 (0.24-0.86) x10^3/uL Absolute Nucleated RBC 0.00 (0.00-0.012) x10^3u/L Lymphocytes % 17.1 L (19.3-51.7) % Monocytes % 8.9 (4.7-12.5) % Eosinophils % 3.3 (0.7-5.8) % Basophils % 0.5 (0.1-1.2) % Absolute Granulocytes 5.12 (1.56-6.13) x10^3/uL Basophils # 0.04 (0.01-0.08) x10^3/uL Sodium 137 (135-145) mmol/L Potassium 4.2 (3.5-5.1) mmol/L Chloride 105 (98-107) mmol/L Carbon Dioxide 26 (22-30) mmol/L Anion Gap 10.1 (5-15) MEQ/L BUN 17 (7-17) mg/dL Creatinine 1.25 H (0.52-1.04) mg/dL Estimated GFR 43.3 ML/MIN Glucose 112 H (74-106) mg/dL Calcium 9.1 (8.4-10.2) mg/dL Total Bilirubin 0.40 (0.2-1.3) mg/dL AST 18 (14-36) U/L ALT 11 (0-35) U/L Alkaline Phosphatase 45 (38-126) U/L Serum Total Protein 6.7 (6.3-8.2) g/dL Albumin 3.7 (3.5-5.0) g/dL Radiology Exams: Radiology Procedures Category Date Time Status FOOT (MINIMUM 3 VIEWS) Stat Exams 07/02/24 11:55 Completed MRI LOWER EXT W/O CONTRAST [MRI] Routine Exams 07/03/24 06:00 Completed Multi-Disciplinary Progress Notes: Multi-Disciplinary Progress Notes 07/03/24 16:53 Pharmacy Note by Jg Luo Merrem iv dosingm iv q12h is the appropriate dose. If once daily dosing is needed, you could try 2 grams daily. Or Invanz is dosed once daily. Initialized on 07/03/24 16:53 - END OF NOTE Assessment/Plan (1) Toe infection Current Visit: Yes Status: Acute Assessment & Plan: -Discussed case with Dr. Michelle - will get MRI LLE - per radiology unable to do until morning - will continue vanc/zosyn for now - possible surgical intervention tomorrow -Left foot xray reviewed demonstrating great toe plantar soft tissue swelling/ulcer -CMP, CBC reviewed -Cultures pending 07/03: -MRI lower demonstrates Nonspecific plantar soft tissue swelling/edema, greatest 1st toe. 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 Remaining MRI left foot without contrast exam is negative. -continue vanc/zosyn pending culture results -Reviewed podiatry documentation - plan I&D today -Wound culture pending Code(s): L08.9 - LOCAL INFECTION OF THE SKIN AND SUBCUTANEOUS TISSUE, UNSP HILARY - creat reviewed at 1.25 - baseline around 1-1.2 -monitor renal/lytes (2) HTN (hypertension) Current Visit: Yes Status: Acute Assessment & Plan: -increase dose of benazepril to 40mg bid -add amlodipine -Hydralazine PRN for sbp > 180 and DBP > 100 Code(s): I10 - ESSENTIAL (PRIMARY) HYPERTENSION (3) Type 2 diabetes mellitus Current Visit: Yes Status: Acute Assessment & Plan: -SSI -ADA diet -A1c at 5.86 (4) HLD (hyperlipidemia) Current Visit: Yes Status: Acute Assessment & Plan: -continue statin Code(s): E78.5 - HYPERLIPIDEMIA, UNSPECIFIED (5) Hypothyroid Current Visit: Yes Status: Acute Assessment & Plan: -continue synthroid VTE SCD - hold lovenox for surgery PPI: protonix Dispo: 1-2 days Code(s): L08.9 - LOCAL INFECTION OF THE SKIN AND SUBCUTANEOUS TISSUE, UNSP (2) HTN (hypertension) Current Visit: Yes Status: Acute Code(s): I10 - ESSENTIAL (PRIMARY) HYPERTENSION (3) Type 2 diabetes mellitus Current Visit: Yes Status: Acute (4) HLD (hyperlipidemia) Current Visit: Yes Status: Acute Code(s): E78.5 - HYPERLIPIDEMIA, UNSPECIFIED (5) Hypothyroid Current Visit: Yes Status: Acute Code(s): E03.9 - HYPOTHYROIDISM, UNSPECIFIED (6) HILARY (acute kidney injury) Current Visit: Yes Status: Acute Code(s): N17.9 - ACUTE KIDNEY FAILURE, UNSPECIFIED
[2024-07-04 05:37] LABS: Absolute Neutrophil Ct (ANC) 5.48 x10^3/uL (1.56-6.13); BASOPHIL % 0.5 % (0.1-1.2); Basophil (Absolute #) 0.04 x10^3/uL (0.01-0.08); Eosinophil % 2.5 % (0.7-5.8); Eosinophil (Absolute #) 0.19 x10^3/uL (0.04-0.36); Hematocrit 33.3 % (34.1-44.9); Hemoglobin 10.7 g/dL (11.2-15.7); IMMATURE GRAN # 0.04 x10^3u/L (0.001-0.031); IMMATURE GRAN % 0.5 % (0.001-0.429); Lymphocyte (Absolute #) 1.17 x10^3/uL (1.18-3.74); Lymphocytes % 15.1 % (19.3-51.7); Mean Cell Volume 91.7 fL (79.4-94.8); Mean Corpuscular Hemoglobin 29.5 pg (25.6-32.2); Mean Corpuscular Hgb Concent. 32.1 g/dL (32.2-35.5); Mean Platelet Volume 9.8 fL (9.4-12.3); Monocyte (Absolute #) 0.83 x10^3/uL (0.24-0.86); Monocytes % 10.7 % (4.7-12.5); Neutrophil % 70.7 % (34.0-71.1); Platelet Count 253 x10^3/uL (182-369); Red Blood Count 3.63 x10^6/uL (3.93-5.22); Red Cell Distribution Width 15.1 % (11.7-14.4); White Blood Count 7.8 x10^3/uL (3.98-10.04)
[2024-07-04 06:03] LABS: ALBUMIN 3.7 g/dL (3.5-5.0); ANION GAP 10.8 MEQ/L (5-15); BILIRUBIN,TOTAL 0.5 mg/dL (0.2-1.3); Calcium 8.9 mg/dL (8.4-10.2); Creatinine 1 1.18 mg/dL (0.52-1.04); EST GLOMERULAR FILTRATION RATE 46.4 ML/MIN; Potassium 3.9 mmol/L (3.5-5.1); Total Protein 6.8 g/dL (6.3-8.2)
[2024-07-04] MEDS ORDERED: TROUGH DRUG LEVELS IJ ONE (09:30)
[2024-07-04] MEDS: Merrem 1 GM in Sodium Chloride 100ML MINI-BAG PLUS 100 ML IV SCH (11:34)
--- NOTE | 2024-07-04 11:58 | XRAY ---
Indication: PICC line placement. Comparison: None Portable chest demonstrates right arm PICC line with tip projecting over right atrium. Recommend withdrawal at least 5 cm. Lungs demonstrates mild left costophrenic angle subsegmental atelectasis and a few bilateral calcified granulomas. Heart not enlarged. Bony thorax intact with osteopenia and degenerative changes.
[2024-07-04 12:37] VITALS: BP 143/64; PULSE 89; RESP 20; TEMP 98.9; O2SAT 96
--- NOTE | 2024-07-04 12:37 | PCM.DS ---
Discharge Summary Date of Admission: 07/02/24 12:58 Date of Discharge: 07/04/24 Admitting Physician: BARBI GONZALEZ MD Primary Care Provider: IVAN JESSICA Allergies Allergies prochlorperazine [From Compazine] Adverse Reaction (Verified 02/19/24 06:10) [facility] Summary - Hospital Course Hospital Course: is a 83 year old female with a pmhx of DMII, HTN, HLD, GERD, and hypothyroidism who presented to ED 07/02/24 with complaints of left great toe pain and swelling. Patient reported that approximately 3 weeks ago her podia trist Dr. Gage Mims in [place] shaved off callus formation on bilateral great toes and subsequently noticed increasing pain and swelling around the left great toe. Denies fever,cough, sob, cp, abdominal pain, NAYLOR, dizziness, N/V/D. Upon arrival to ED, patient was hypertensive otherwise stable vitals. Left foot xray demonstrates great toe plantar soft tissue swelling/ulcer. Lab findings remarkable for slightly elevated creat but at patient's baseline of (1-1.2). Podiatry consulted in ED and performed bedside I&D. IP treatment with vanc/zosyn. Admit for left great toe infection. Soft tissue wound culture with citrobacter. MRI with Nonspecific plantar soft tissue swelling/edema, greatest 1st toe. 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 Remaining MRI left foot without contrast exam is negative. I&D performed 07/03/24. Bone biopsy pendig. PICC placed for OP Invanz for 4 weeks. Podiatry following and OP appt scheduled for follow up and further management with final biopsy results. Patient agreeable to plan and stable for discharge. All questions/concerns addressed. Advised good glycemic control for optimal wound healing. Advised follow up with PCP with repeat CMP to check creat levels. Patient also to keep BP log to take to follow up with pcp- BP have been high during hospitalization. Benazepril has been increased to 40mg bid and amlodipine 5mg daily added. Discharge Note New Diagnosis: Left great to infection New Medications: Invanz/norco/increased benazepril/add amlodipine Follow Up: podiatry/pcp Latest Assessment & Plan (1) Toe infection Current Visit: Yes Status: Acute Assessment & Plan: -Discussed case with Dr. Michelle - will get MRI LLE - per radiology unable to do until morning - will continue vanc/zosyn for now - possible surgical intervention tomorrow -Left foot xray reviewed demonstrating great toe plantar soft tissue swelling/ulcer -CMP, CBC reviewed -Cultures pending 07/03: -MRI lower demonstrates Nonspecific plantar soft tissue swelling/edema, greatest 1st toe. 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 Remaining MRI left foot without contrast exam is negative. -continue vanc/zosyn pending culture results -Reviewed podiatry documentation - plan I&D today -Wound culture pending 07/04: -creat reviewed and at baseline -1.18 Code(s): L08.9 - LOCAL INFECTION OF THE SKIN AND SUBCUTANEOUS TISSUE, UNSP HILARY - creat reviewed at 1.25 - baseline around 1-1.2 -monitor renal/lytes (2) HTN (hypertension) Current Visit: Yes Status: Acute Assessment & Plan: -increase dose of benazepril to 40mg bid -add amlodipine -Hydralazine PRN for sbp > 180 and DBP > 100 Code(s): I10 - ESSENTIAL (PRIMARY) HYPERTENSION (3) Type 2 diabetes mellitus Current Visit: Yes Status: Acute Assessment & Plan: -SSI -ADA diet -A1c at 5.86 (4) HLD (hyperlipidemia) Current Visit: Yes Status: Acute Assessment & Plan: -continue statin Code(s): E78.5 - HYPERLIPIDEMIA, UNSPECIFIED (5) Hypothyroid Current Visit: Yes Status: Acute Assessment & Plan: -continue synthroid I spent 35 minutes [id number] with the patient on the day of discharge performing discharge exam, discussing hospital stay and discharge instructions with patient and caregivers, preparation of discharge records, prescriptions & referral forms and addressing any questions/concerns the patient had as documented above. - Vitals & Intake/Output Vital Signs: Vital Signs Temperature 98.7 F 07/04/24 07:00 Pulse Rate 92 H 07/04/24 07:00 Respiratory Rate 18 07/04/24 07:00 Blood Pressure 134/60 07/04/24 07:00 O2 Sat by Pulse Oximetry 95 07/04/24 07:00 Intake & Output: Intake & Output 07/02/24 07/03/24 07/04/24 07/05/24 11:59 11:59 11:59 11:59 Intake Total 1222 1660 Balance 1222 1660 Weight 76.814 kg 76.1 kg 75.5 kg - Lab Result Diagrams: 07/04/24 05:23 07/04/24 05:23 Lab Results-Last 24 Hrs: Lab Results-Last 24 Hours 07/04/24 07/04/24 Range/Units 05:23 05:23 WBC 7.8 (3.98-10.04) x10^3/uL RBC 3.63 L (3.93-5.22) x10^6/uL Hgb 10.7 L (11.2-15.7) g/dL Hct 33.3 L (34.1-44.9) % MCV 91.7 (79.4-94.8) fL MCH 29.5 (25.6-32.2) pg MCHC 32.1 L (32.2-35.5) g/dL RDW 15.1 H (11.7-14.4) % Plt Count 253 (182-369) x10^3/uL MPV 9.8 (9.4-12.3) fL Gran % 70.7 (34.0-71.1) % Immature Gran % (Auto) 0.5 H (0.001-0.429) % Nucleat RBC Rel Count 0.0 (0.00-0.2) % Eos # (Auto) 0.19 (0.04-0.36) x10^3/uL Immature Gran # (Auto) 0.04 H (0.001-0.031) x10^3u/L Absolute Lymphs (auto) 1.17 L (1.18-3.74) x10^3/uL Absolute Monos (auto) 0.83 (0.24-0.86) x10^3/uL Absolute Nucleated RBC 0.00 (0.00-0.012) x10^3u/L Lymphocytes % 15.1 L (19.3-51.7) % Monocytes % 10.7 (4.7-12.5) % Eosinophils % 2.5 (0.7-5.8) % Basophils % 0.5 (0.1-1.2) % Absolute Granulocytes 5.48 (1.56-6.13) x10^3/uL Basophils # 0.04 (0.01-0.08) x10^3/uL Sodium 136 (135-145) mmol/L Potassium 3.9 (3.5-5.1) mmol/L Chloride 104 (98-107) mmol/L Carbon Dioxide 25 (22-30) mmol/L Anion Gap 10.8 (5-15) MEQ/L BUN 17 (7-17) mg/dL Creatinine 1.18 H (0.52-1.04) mg/dL Estimated GFR 46.4 ML/MIN Glucose 143 H (74-106) mg/dL Calcium 8.9 (8.4-10.2) mg/dL Total Bilirubin 0.50 (0.2-1.3) mg/dL AST 19 (14-36) U/L ALT 12 (0-35) U/L Alkaline Phosphatase 46 (38-126) U/L Serum Total Protein 6.8 (6.3-8.2) g/dL Albumin 3.7 (3.5-5.0) g/dL Micro Results-Entire Visit: Microbiology 07/02/24 09:45 Blood Culture - Preliminary Blood 07/02/24 13:09 Wound Culture - Final Abcess Citrobacter Koseri Accuchecks Date 07/04/24 Date 07/04/24 Date 07/03/24 Date 07/03/24 Time 17:07 - Radiology Exams Ordered Rad Exams-Entire Visit: Radiology Procedures Category Date Time Status CHEST 1 VIEW (PORTABLE) Stat Exams 07/04/24 11:27 Completed FOOT (MINIMUM 3 VIEWS) Stat Exams 07/02/24 11:55 Completed MRI LOWER EXT W/O CONTRAST [MRI] Routine Exams 07/03/24 06:00 Completed Discharge Exam General Appearance: no apparent distress Neurologic Exam: alert, oriented x 3, cooperative Eye Exam: PERRL Ears, Nose, Throat Exam: normal ENT inspection Neck Exam: normal inspection Respiratory Exam: normal breath sounds, lungs clear Cardiovascular Exam: regular rate/rhythm, normal heart sounds Gastrointestinal/Abdomen Exam: soft, normal bowel sounds Pelvic Exam: deferred Rectal Exam: deferred Back Exam: normal inspection Extremity Exam: other (left great toe posterior wound s/p I&D covered in surgical dressing CDI) Wound Assessment: Skin/Wound Assessment Wound/Incision Assessment Start: 07/02/24 16:00 Text: Status: Active Freq: Protocol: Document 07/02/24 16:07 RB (Rec: 07/02/24 16:09 RB [id number]) Wound/Incision Assessment Left Lower Posterior Toe Wound Assessment Admission Wound Type DIABETIC ULCER Drainage Amount Moderate Drainage Description Purulent Drainage Odor Foul Odor General Appearance Open to air Length (cm) (cm) 3 Width (cm) (cm) 1.5 Wound Bed Greatest Portion Red (Granulation),Yellow ( Slough) Surrounding Tissue Dark Red Wound Photo Photo Taken Yes Date: 07/02/24 Time: 15:00 Final Diagnosis/Problem List - Final Discharge Diagnosis/Problem (1) Toe infection Current Visit: Yes Status: Acute Code(s): L08.9 - LOCAL INFECTION OF THE SKIN AND SUBCUTANEOUS TISSUE, UNSP (2) HTN (hypertension) Current Visit: Yes Status: Chronic Code(s): I10 - ESSENTIAL (PRIMARY) HYPERTENSION (3) Type 2 diabetes mellitus Current Visit: Yes Status: Chronic (4) HLD (hyperlipidemia) Current Visit: Yes Status: Chronic Code(s): E78.5 - HYPERLIPIDEMIA, UNSPECIFIED (5) Hypothyroid Current Visit: Yes Status: Chronic Code(s): E03.9 - HYPOTHYROIDISM, UNSPECIFIED (6) HILARY (acute kidney injury) Current Visit: Yes Status: Acute Code(s): N17.9 - ACUTE KIDNEY FAILURE, UNSPECIFIED - Discharge Disposition: Home, Self-Care Condition: Stable Prescriptions: New Ertapenem Sodium [Invanz ] 1 g IV DAILY #28 Benazepril HCl [Lotensin] 40 mg PO BID 30 Days #60 tablet Amlodipine Besylate 5 mg [Norvasc 5 mg] 5 mg PO QAM 30 Days #30 tablet Continue Omeprazole [Prilosec] 40 mg PO DAILY Levothyroxine Sodium 0.05 mg PO DAILY Gabapentin 300 mg PO BID Metformin HCl 500 mg [Glucophage 500 MG] 1,000 mg PO BID Simvastatin 40 mg PO EVENING MEAL Alendronate Sodium [Fosamax] 70 mg PO WEEKLY Insulin Aspart (Niacinamide) [Fiasp 100 Unit/ml Flextouch] 100 units SQ UD Tirzepatide [Mounjaro] 2.5 mg SQ WEEKLY Insulin Degludec [Tresiba Flextouch U-100] 11 unit SQ HS Discontinued Benazepril HCl 20 mg PO BID Additional Instructions: YOU MAY PARTIAL WEIGHTBEAR ON LEFT FOOT WITH ASSISTIVE DEVICE WHILE SURGICAL SHOE IN PLACE YOUR FIRST APT WITH [facility] IS ON 07/05/24@0930 THEY WILL CHANGE YOUR DRESSINGS THREE TIMES A WEEK FOLLOWS: APPLY IDODINE TO WOUND ON LEFT FOOT APPLY ADAPTIC, AQUACEL, STERILE 4X4 GAUZE TO WOUND WRAP WITH [facility] TO SEND IN RX FOR PAIN MEDS Follow up with: JOI LYNN DPM [ACTIVE STAFF] - 07/10/24 10:00 am IVAN JESSICA [Primary Care Provider] - 07/14/24 10:00 am
[2024-07-04] MEDS: NORCO 5/325 MG PO PRN (15:32)
--- NOTE | 2024-07-05 15:49 | OP ---
SURGERY DATE/TIME: 07/03/2024 [id number] PREOPERATIVE DIAGNOSES: 1) Left diabetic foot ulcer. 2) Abscess, left foot. 3) Peripheral neuropathy. 4) Controlled diabetes mellitus. 5) Cellulitis, left great toe. POSTOPERATIVE DIAGNOSES: 1) Left diabetic foot ulcer. 2) Abscess, left foot. 3) Peripheral neuropathy. 4) Controlled diabetes mellitus. 5) Cellulitis, left great toe. PROCEDURE: Incision and drainage with bone debridement to the left hallux. SURGEON: Miguel Angel Samano DPM. DAIRY SCIENCE TEACHER: None. HEMOSTASIS: Pressure dressing. ESTIMATED BLOOD LOSS: Approximately 5 mL. MATERIALS: Transactiv. INJECTABLES: 20 mL of a 1:1 mixture of 1% lidocaine plain and 0.5% bupivacaine plain injected in a Rosales block-type fashion to the left lower extremity. INDICATIONS FOR PROCEDURE: The patient is a very pleasant 83-year-old female whom I first met in the emergency department yesterday where she presented for a large bullous callus on the bottom of her left great toe. Patient indicated that she had an office visit with Dr. Funez where her calluses were debrided at that time; however, shortly thereafter, approximately 3 weeks, there was some swelling and pain that increased. She tried to get back in with her provider; however, he was out and she was noticing increasing pain and swelling, so she decided to proceed to visit to the hospital. The emergency room provider took x-rays and called upon my service. When I first saw the patient, the large bullous blister was obviously an abscess in my eyes, and we decided to proceed with a bedside debridement secondary to the pain and the cellulitis. As a result, patient is very sensate, and a lot of pain was experienced while performing this. However, significant relief was had when approximately 5 mL of purulent drainage were drained from the abscess. Given the findings, an MRI was obtained which demonstrated no obvious signs of osteomyelitis; however, with the positive probe to bone, my concern was still alerted to the possibility of bone infection. From that standpoint, decision was made to proceed with incision, drainage, and bone debridement in order to better assess and grab a bone biopsy in order to determine if the patient did indeed have osteomyelitis. Patient understands all risks, complications, and benefits of surgical intervention at this time including, but not limited to, infection, hematoma, seroma, possibility of delayed wound healing, non-wound healing, and possibility of need for further surgical intervention at a later date. Patient understands all risks and complications, and no guarantees were provided as to the outcome. Patient understands that this is potentially a salvage procedure; however, this is in hopes to do so. There is still the possibility of a possible amputation. From that standpoint, we decided to proceed. DESCRIPTION OF PROCEDURE AND FINDINGS: Patient was brought into the operating room and placed on the operating room table in a supine position. At this time, monitored anesthesia care was administered until the patient was adequately sedated. Then, the left lower extremity was prepped and draped in the typical sterile fashion and lowered onto the surgical field. At this time, a 20 mL block of a 1:1 mixture of 1% lidocaine plain and 0.5% bupivacaine plain was injected in a Rosales block-type fashion. Once this was performed and the patient was sedated, excision of the bullous blister was performed with approximately 5 mL of purulent drainage expressed. Soft tissue cultures were taken in an outpatient setting or in the emergency department. At this time, there was a positive probe to bone seen in the orientation of the wound from a distal central aspect going in the 6 o'clock position. This was seemingly tracking up the flexor hallucis tendon sheath and the flexor hallucis tendon sheath was milked, revealing more purulent drainage. Once this was performed, the bone quality at the proximal phalanx was probed and assessed, and deemed to be somewhat softer than the surrounding bone. Decision at this time was made to proceed with a bone biopsy and bone debridement. This was carried out utilizing a combination of rongeurs and curettes. From that standpoint, patient was then cleansed with 1000 mL of Bactisure and 500 mL of sodium chloride. Once this was performed, gloves were changed. Dressing consisting of Betadine, Adaptic, 4 x 4, Kerlix, ABD, and Kevin was applied to the patient's left lower extremity. Patient was then returned to the postoperative anesthesia care unit with vital signs stable and vascular status intact. Patient handled the anesthesia as well as the procedure without significant complication. Postoperative orders as indicated in the patient's discharge chart.
--- NOTE | 2024-07-07 07:43 | PCM.NOTE ---
Date and Time: 07/07/24 0741 Subjective Assessment: Status post 1 day postop for surgical incision and drainage with soft tissue debridement. At this time family denies any signs and symptoms consistent with systemic infection. She reports pain to be minimal with intermittent moderate "twinges " of pain. Pain is described as dull/sharp at times. Evaluation of laboratory studies from 07/04/2024 reveal mild anemia, renal dysfunction indicating stage IIIa CKD, and elevated glucose 143. Physical Exam - Narrative Narrative Physical Exam: Podiatry Physical Exam Objective Data Vital Signs: Pain Assessment - Last Documented Pain Intensity 8 Pain Scale Used 0-10 Pain Scale Intake and Output: Intake & Output 07/04/24 07/05/24 07/06/24 07/07/24 11:59 11:59 11:59 11:59 Intake Total 1660 240 Balance 1660 240 Weight 75.5 kg Assessment/Plan (1) Diabetic foot ulcer associated with type 2 diabetes mellitus Status: Acute Assessment & Plan: Multilayer compression dressing was removed and wound evaluated. Wound bed measures 2.8 x 2.3 mm. After consultation with hospitalist T[employer]ING M[employer]TER, plan for discharge today and follow-up on 07/10/2024 in the clinic. She is going to be established with home health care for dressing changes. She has a PICC line placed today and will be receiving daily IV antibiotics while awaiting surgical pathology. Wound dressed with a multilayer compression dressing consisting of iodine, Adaptic, Aquacel, 4 x 4, Kerlix, and Kevin bandages. Discussed red flag symptoms concerning for seeking immediate medical attention at the emergency department. ok for dc from my standpoint. Code(s): E11.621 - TYPE 2 DIABETES MELLITUS WITH FOOT ULCER; L97.509 - NON- PRESSURE CHRONIC ULCER OTH PRT UNSP FOOT W UNSP SEVERITY (2) Abscess of toe of right foot Status: Acute Code(s): L02.611 - CUTANEOUS ABSCESS OF RIGHT FOOT (3) Right foot pain Status: Acute Code(s): M79.671 - PAIN IN RIGHT FOOT (4) Toe infection Status: Acute Code(s): L08.9 - LOCAL INFECTION OF THE SKIN AND SUBCUTANEOUS TISSUE, UNSP (5) Type 2 diabetes mellitus Status: Chronic
== END 2024-07-04 16:53 | disposition home or self-care (01) ==
LOC: ED 09:06 → MED SURG 12:58
PROVIDERS: ADMIT Internal Medicine; ATTEND Internal Medicine
DX: L08.9 Local infection of the skin and subcutaneous tissue, unspecified (principal); L03.032 Cellulitis of left toe; E11.621 Type 2 diabetes mellitus with foot ulcer; L97.509 Non-pressure chronic ulcer of other part of unspecified foot with unspecified severity; L02.611 Cutaneous abscess of right foot; M79.671 Pain in right foot; I10 Essential (primary) hypertension; E78.5 Hyperlipidemia, unspecified; K21.9 Gastro-esophageal reflux disease without esophagitis; E03.9 Hypothyroidism, unspecified; N17.9 Acute kidney failure, unspecified; Z79.899 Other long term (current) drug therapy; L02.612 Cutaneous abscess of left foot; E11.42 Type 2 diabetes mellitus with diabetic polyneuropathy
CPT/HCPCS: 28005; 36415; 71045; 73630; 73718; 80053; 83036; 85025; 85652; 87040; 87070; 87077; 87186; 96372; 96374; 96375; 97161; 99285; A6260; 36573; G0378; J0360; J1642; J1817; J2270; J2405; J2543; J2704; A9270-GY; J3370

== ENCOUNTER 2024-11-04 05:41 | Day surgery (SDC) | payer MEDICARE, OTHER ==
[2024-11-04] MEDS ORDERED: CEFAZOLIN 2 GM/100 ML NaCl 2 GM/100 ML IVPB IV ONE (06:11)
[2024-11-04] MEDS ORDERED: TYLENOL EXTRA STRENGTH 500 MG ONE (06:11)
[2024-11-04] MEDS ORDERED: NEURONTIN ONE (06:12)
[2024-11-04] MEDS ORDERED: Decadron 4 MG ONE (06:12)
[2024-11-04] MEDS ORDERED: Sodium Chloride 0.9% 1000 ML 1,000 ML ONE (06:12)
[2024-11-04] MEDS ORDERED: celeBREX 100 MG ONE (06:12)
[2024-11-04] MEDS: celeBREX 100 MG PO ONE (06:14)
[2024-11-04] MEDS: TYLENOL EXTRA STRENGTH 500 MG PO ONE (06:14)
[2024-11-04] MEDS: Decadron 4 MG PO ONE (06:14)
[2024-11-04] MEDS: NEURONTIN PO ONE (06:15)
[2024-11-04] MEDS: CEFAZOLIN 2 GM/100 ML NaCl 2 GM/100 ML IVPB IV SCH (06:15)
[2024-11-04] MEDS: Sodium Chloride 0.9% 1000 ML 1,000 ML IV SCH (06:15)
[2024-11-04] MEDS ORDERED: Marcaine Mpf 0.5% Vial 30 Ml ONE (06:38)
[2024-11-04] MEDS ORDERED: Xylocaine 1% Vial 30 ML PF IJ ONE (06:38)
[2024-11-04 06:44] LABS: Absolute Neutrophil Ct (ANC) 6.98 x10^3/uL (1.56-6.13); BASOPHIL % 0.7 % (0.1-1.2); Basophil (Absolute #) 0.06 x10^3/uL (0.01-0.08); Eosinophil % 2.2 % (0.7-5.8); Hematocrit 30.8 % (34.1-44.9); Hemoglobin 9.3 g/dL (11.2-15.7); IMMATURE GRAN # 0.05 x10^3u/L (0.001-0.031); IMMATURE GRAN % 0.6 % (0.001-0.429); Lymphocyte (Absolute #) 1.08 x10^3/uL (1.18-3.74); Mean Cell Volume 90.3 fL (79.4-94.8); Mean Corpuscular Hemoglobin 27.3 pg (25.6-32.2); Mean Corpuscular Hgb Concent. 30.2 g/dL (32.2-35.5); Mean Platelet Volume 8.3 fL (9.4-12.3); Monocyte (Absolute #) 0.65 x10^3/uL (0.24-0.86); Monocytes % 7.2 % (4.7-12.5); Neutrophil % 77.3 % (34.0-71.1); Platelet Count 340 x10^3/uL (182-369); Red Blood Count 3.41 x10^6/uL (3.93-5.22); Red Cell Distribution Width 15.5 % (11.7-14.4)
[2024-11-04 06:58] LABS: ALBUMIN 3.7 g/dL (3.5-5.0); ANION GAP 15.5 MEQ/L (5-15); BILIRUBIN,TOTAL 0.3 mg/dL (0.2-1.3); Calcium 8.3 mg/dL (8.4-10.2); Creatinine 1 0.99 mg/dL (0.52-1.04); EST GLOMERULAR FILTRATION RATE 56.9 ML/MIN; Potassium 4.3 mmol/L (3.5-5.1)
[2024-11-04] MEDS ORDERED: ROCURONIUM BROMIDE IV ONE (07:04)
[2024-11-04] MEDS ORDERED: propofoL IV ONE (07:05)
[2024-11-04] MEDS ORDERED: SUBLIMAZE 100 MCG/2 ML ONE (07:05)
[2024-11-04] MEDS ORDERED: Versed 2 MG/2 ML Injection ONE (07:06)
[2024-11-04] MEDS ORDERED: BRIDION 200MG/2ML IV ONE (08:49)
[2024-11-04] MEDS ORDERED: Zofran 4 MG/2 ML VIAL ONE (08:49)
[2024-11-04] MEDS ORDERED: BREVIBLOC 100 MG/10 ML IV ONE (09:16)
--- NOTE | 2024-11-04 09:21 | XRAY ---
Indication: Right 1st MTP arthrodesis, hardware removal, 2nd hammertoe correction, and George osteotomy. Intraoperative fluoroscopy provided for 1 minute 34 seconds. 23 digital spot images submitted for interpretation ultimately demonstrates 1st MTP arthrodesis, 2nd metatarsal head George osteotomy, and fusion 2nd toe all with intact hardware. Correlate with intraoperative findings/report.
[2024-11-04 10:17] VITALS: RESP 18
[2024-11-04 10:26] VITALS: O2SAT 95
[2024-11-04 11:00] VITALS: BP 131/94; PULSE 89; TEMP 97.3
--- NOTE | 2024-11-04 14:23 | XRAY ---
1 minute and 34 seconds of fluoroscopy was used in surgery for a right 1st MTP arthrodesis, hardware removal, 2nd hammertoe correction, and George osteotomy.
--- NOTE | 2024-11-05 09:29 | OP ---
SURGERY DATE/TIME: 11/04/2024 [id number] PREOPERATIVE DIAGNOSES: 1) Hallux varus, right foot. 2) Right foot pain, 3) Instability with gait. 4) Diabetic peripheral neuropathy. 5) Diabetes mellitus, controlled. 6) Hammertoe, second digit. 7) Orthopedic hardware in situ, right first metatarsal. POSTOPERATIVE DIAGNOSES: 1) Hallux varus, right foot. 2) Right foot pain, 3) Instability with gait. 4) Diabetic peripheral neuropathy. 5) Diabetes mellitus, controlled. 6) Hammertoe, second digit. 7) Orthopedic hardware in situ, right first metatarsal. PROCEDURES: 1) Removal of hardware. 2) First metatarsophalangeal joint arthrodesis, right foot. 3) Modified George osteotomy. 4) Hammertoe correction, second digit, right foot. SURGEON: Miguel Angel Samano MD GENERATION ENGINEERING TECHNOLOGIST: Rodo Payne NP-[employer] Margaret [employer]gan, Certified surgical Gasoline Engine Assembler. ANESTHESIA: General. HEMOSTASIS: An ankle tourniquet set to 250 mmHg for a total of 90 minutes. ESTIMATED BLOOD LOSS: Approximately 10 mL. MATERIALS: A 4-0 Monocryl, 3-0 nylon, a Tien ALPS first MPJ 5 degree right, a 4.0 x 36 VPC, a 2.0 x 14 partially-threaded headed cannulated screw and a 2.5 x 40 VPC screw for the hammertoe. INJECTABLES: 20 mL of a 1:1 mixture of 1% lidocaine plain and 0.5% bupivacaine plain injected in a Rosales block and a metatarsal block to the second metatarsal type fashion. INDICATIONS FOR PROCEDURE: The patient is a very pleasant, 84-year-old female, very well-known to my service for a history of osteomyelitis to the left lower extremity secondary to patient's severe flatfoot and previous hallux valgus surgery. Patient has had significant pain to the bilateral feet after hallux valgus surgery to the bilateral lower extremity. To the left, patient has had a significant improvement in her symptoms, however, after iatrogenic staking of the first metatarsal head. With the previous surgery patient has fallen into hallux varus. This has led to pain, instability with gait and previous callusing and ulceration to the right first IPJ. As a result, gait assessment was performed and it was determined due to her hallux varus that this ulceration was recurrent secondary to the position of the hallux varus and her pronation deformity. Discussion was held in regards to ways to fix this and address her pain. Patient has agreed to proceed with the first MPJ fusion, as it is the most definitive way to proceed with correcting the hallux varus condition, this, in conjunction with correction of the hammertoe secondary to its transverse plane medialization and possibility of this becoming an issue once the hallux varus was corrected. Patient understands all risks, benefits and complications of surgical intervention, including but not limited to infection, hematoma, seroma, possibility of delayed wound healing, non-wound healing, possibility of failure of surgical intervention, possibility of hardware failure and possible need for further surgical intervention at a later date. No guarantees were provided as to the outcome of surgical intervention. Plenty of time was allowed for the patient to ask questions, which were answered to her apparent satisfaction at this time. It is at this time we decided to proceed. DESCRIPTION OF PROCEDURE AND FINDINGS: Patient was brought into the operating room, place on the operating room table in the supine position. At this time, general anesthesia was administered until the patient was adequately sedated. Once the patient was sedated, a well-padded ankle tourniquet was applied and the patient's right ankle and the tourniquet was set to 250 mmHg. The right lower extremity was prepped and draped in the typical sterile fashion and lowered onto the surgical field. At this time, an Esmarch was utilized to exsanguinate the leg and the tourniquet was inflated. A linear incision was carried down to the level of the first metatarsal where the cannulated cruciform screw was encountered and removed utilizing a T9 local bulk driver. Radiographs were utilized to confirm the removal of that screw in the first metatarsal head. Incision was made just medial to the extensor hallucis longus tendon. This was deepened, paying careful attention not to damage any neurovascular structures along the way. The extensor hallucis longus tendon was retracted laterally once released from its soft tissue attachments. From that standpoint, the capsulotomy was performed, demonstrating a fairly atavistic and a worn down cartilage head to the first metatarsal and to a lesser degree, the first proximal phalanx base. The cup and conical reamers were utilized to denude the cartilage down to subchondral plate. This was flushed with copious amounts of sterile saline and then, a 2 mm drill was then utilized to fenestrate the first metatarsal head, as well as the base of the proximal phalanx. Once this was performed, a plate was introduced dorsally and position was assessed. A K-wire was utilized to hold the position in the metatarsal and then the interfragmentary K-wire was utilized to hold the position in the transverse plane. Once this was assessed, distal locking screws were applied to the plate. A cortical 14 full-threaded screw was then introduced to the distal aspect of the plate and a combination of locking and nonlocking screws were utilized to fixate this end of the plate. Interfragmentary screw measuring 40 x 36 was utilized first to gain compression through the joint and then, this was alternated with an 18 mm eccentric screw within the plate in order to gain alternating compression through the 2 sites. Utilizing these 2 sites, excellent compression was provided. Once this occurred, a combination of locking and nonlocking screws were utilized to secure the plate to the level of the bone without any high points or places of irritation. From that standpoint, copious amounts of sterile saline were utilized to flush the surgical site. Decision was made to go ahead and proceed with capsular closure with 4-0 Monocryl in a continuous interlocking technique and then 4-0 Monocryl once again was utilized in a simple interrupted buried-type fashion to coapt the subcutaneous tissue. Once this was performed, 3-0 nylon was then utilized to coapt the skin in a horizontal mattress-type fashion. Following this, attention was directed to the second metatarsal where a linear incision was made utilizing a 15 blade over the extensor digitorum brevis. This was lengthened utilizing a Z-lengthening tenotomy. Once this was performed, the second metatarsal head was identified. There was medialization of the toe relative to the metatarsal head, so the decision was made to perform a medializing modified George osteotomy. Once this was performed, an 18 mm sagittal saw was utilized to make a cut parallel to the weightbearing surface of the second metatarsal head, shifting the metatarsal head medially and the toe drifted somewhat laterally. Once this was performed, this was pinned in this position and a 2.0 x 14 mm headed partially-threaded screw was introduced dorsally, gaining excellent compression. The overhang was then cleaned from the site. Decision was made to proceed with the hammertoe correction where a linear incision was made at the level of the proximal interphalangeal joint. Joint resection took place utilizing the same 18 mm sagittal saw. Once this was corrected, a 0.065 K-wire was retrograded out the tip of the toe and then integrated down the cortex of the proximal phalanx. Once this was performed, position was assessed and deemed to be adequate. A 2.5 x 40 VPC screw was then utilized to capture the entirety of the toe. Once this was performed, it was seen that there was an aggressive plantar flexion contraction of the second digit for which a flexor tenotomy took place. At this time, the extensor digitorum longus tendon was then repaired and the position was assessed in a loaded position to be adequate and excellent. From that standpoint, all incisions were cleansed with copious amounts of sterile saline. Closure was accomplished utilizing 4-0 Monocryl and 3-0 nylon in a similar interrupted buried-type fashion, as well as a horizontal mattress-type fashion. Once this was performed, a dressing consisting of Betadine, Adaptic, 4 x 4, Kerlix, ABD and Kevin was applied to the patient's right lower extremity. Patient was then reversed from anesthesia and returned to the postoperative anesthesia care unit with vital signs stable and vascular status intact. Patient handled the anesthesia, as well as the procedure, without significant complication. Postoperative orders as indicated in the patient's discharge chart.
== END 2024-11-04 10:48 | disposition home or self-care (01) ==
LOC: SDC 05:41
PROVIDERS: ATTEND Podiatrist Foot & Ankle Surgery
DX: M20.31 Hallux varus (acquired), right foot (principal); E11.42 Type 2 diabetes mellitus with diabetic polyneuropathy; M20.41 Other hammer toe(s) (acquired), right foot; M79.671 Pain in right foot; I10 Essential (primary) hypertension
CPT/HCPCS: 20680; 28285; 28308; 28750; 36415; 73630; 76000; 80053; 82947; 83036; 85025; 93005; C1713; C1769; J0690; J2250; J2405; J2704; J3010; A9270-GY